=== PATIENT | female | born 1945 | race African-American/Black ===

== ENCOUNTER 2024-06-24 16:46 | Inpatient (IN) | payer MEDICARE, OTHER ==
[~2024-06-24] VITALS: Ht 152.4 cm; Wt 58.8 kg
[~2024-06-24 16:46] MED LIST: AMLO1TAB22; ATEN100T; CELE200C; LISI-285; PREG50CA80 PO; SIMV-270; TRAM-411; TRAM50TA2 PO
--- NOTE | 2024-06-24 17:03 | ED.PDOC ---
SOB-HPI HPI Comments This patient is a very pleasant 79 year old female presents to the ED with chief complaint of SOB and HTN. Patient reports that she has been experiencing some intermittent SOB for the past month, but has chosen to ignore it the whole time. Patient relays that she has also had some minor abdominal pain for a few days, unrelated. Patient states when visiting her PCP today, her BP had read 185/110, being advised to come to the ED due to her high BP. Patient denies any cough, fever, chest pain, headache, N/V/D, or dizziness. Time Seen by MD: 16:57 Primary Care Provider: Bello GIL Reviewed notes: Nurses Notes, Medications, Allergies Information Source: Patient Mode of Arrival: Ambulatory Severity: Moderate Timing: Months Duration: Since onset Context: At Rest PE Risk Factors: None History of: None Prehospital treatment: None Modifying Factors: Nothing Associated Signs and Symptoms: None Past Medical History PAST MEDICAL HISTORY: High Lipids, HTN Surgical History: Denies all surgeries EVENTS AND PROMOTIONS ASSISTANT History: Denies all EVENTS AND PROMOTIONS ASSISTANT Hx Family History Family History: No family hx of Heart netta Social History Smoker: Non-Smoker Alcohol: Denies ETOH Use Drugs: Denies Drug Use Lives In: Home Constitutional: denies: chills, diaphoresis, fatigue, fever, malaise, sweats, weakness, others EENTM: denies: blurred vision, double vision, ear bleeding, ear discharge, ear drainage, ear pain, ear ringing, eye pain, eye redness, hearing loss, mouth pain, mouth swelling, nasal discharge, nose bleeding, nose congestion, nose pain, photophobia, tearing, throat pain, throat swelling, voice changes, others Respiratory: reports: shortness of breath; denies: cough, hemoptysis, orth opnea, SOB at rest, SOB with excertion, stridor, wheezing, others Cardiovascular: denies: chest pain, dizzy spells, diaphoresis, Dyspnea on exertion, edema, irregular heart beat, left arm pain, lightheadedness, palpitations, PND, syncope, others Gastrointestinal: reports: abdominal pain; denies: abdomen distended, blood streaked bowels, constipated, diarrhea, dysphagia, difficulty swallowing, hematemesis, melena, nausea, poor appetite, poor fluid intake, rectal bleeding, rectal pain, vomiting, others Genitourinary: denies: abnormal vagina bleeding, burning, dyspareunia, dysuria, flank pain, frequency, hematuria, incontinence, pain, , vagina discharge, urgency, others Neurological: denies: dizziness, fainting, headache, left sided numbness, left sided weakness, numbness, paresthesia, pre-existing deficit, right sided numbness, right sided weakness, seizure, speech problems, tingling, tremors, we akness, others Musculoskeletal: denies: back pain, gout, joint pain, joint swelling, muscle pain, muscle stiffness, neck pain, others Integumetry: denies: bruises, change in color, change in hair/nails, dryness, laceration, lesions, lumps, rash, wounds, others Allergic/Immunocompromised: denies: Difficulty Healing, Frequent Infections, Hives, Itching, others Hematologic/Lymphatic: denies: anemia, blood clots, easy bleeding, easy bruising, swollen glands, others Endocrine: denies: excessive hunger, excessive sweating, excessive thirst, excessive urination, flushing, intolerance to cold, intolerance to heat, unexplained weight gain, unexplained weight loss, others Psychiatric: denies: anxiety, bipolar disorder, depression, hopeless, panic disorder, schizophrenia, sleepless, suicidal, others All Other Systems: Reviewed and Negative Physical Exam General Appearance: Mild Distress (Patient was in moderate distress at time of evaluation.), Normal HEENT: Normal ENT Inspection, Pharynx Normal, TMs Normal Neck: Full Range of Motion, Non-Tender, Normal, Normal Inspection Respiratory: Other (Mild rhonchi appreciated right middle lobe. No accessory muscle use. 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 Was a procedure done?: No Differential Dx Differential Diagnosis: Anxiety, Bronchitis, CHF, Hypertension, Pneumonia, Pulmonary Embolism, URI X-Ray, Labs, Meds, VS Vital Signs Date Time Temp Pulse Resp B/P (MAP) Pulse Ox O2 Delivery O2 Flow Rate FiO2 06/24/24 22:00 74 15 149/84 (105) 95 06/24/24 19:55 148/85 06/24/24 19:18 98.7 80 17 173/106 (128) 93 98.7 06/24/24 19:18 80 17 93 Room Air* 0 21 06/24/24 18:58 189/103 (131) 06/24/24 18:55 189/103 06/24/24 18:29 98.9 76 18 202/97 (132) 96 98.9 06/24/24 18:27 71 22 96 Room Air* 0 21 06/24/24 17:07 78 06/24/24 16:58 20 95 Room Air 06/24/24 16:58 97.6 87 20 185/135 (152) 95 97.6 Lab Test 06/24/24 19:41 06/24/24 19:31 06/24/24 18:07 06/24/24 17:17 Range/Units Troponin I High Sensitivity 24 24 22 </=34 ng/L Urine Color Light-yellow Yellow Urine Clarity Clear Clear Urine pH 6.0 5.0-9.0 Urine Specific [place] 1.016 1.001-1.035 Urine Protein Negative Negative Urine Ketones Negative Negative Urine Blood Negative Negative /uL Urine Nitrite Negative Negative Urine Bilirubin Negative Negative Urine Urobilinogen Normal Negative mg/dL Urine Leukocyte Esterase Negative Negative /uL Urine RBC <1 0 - 4 /hpf Urine Microscopic WBC 1 0-5 /HPF Urine Squamous Epithelial Cells Few <5 /hpf Urine Bacteria None seen None Seen /hpf Urine Glucose Normal Normal mg/dL White Blood Count 3.2 L 4.4-10.8 10^3/uL Red Blood Count 3.85 L 4.0-5.20 10^6/uL Hemoglobin 12.3 12.2-16.2 g/dL Hematocrit 37.4 36.0-46.0 % Mean Corpuscular Volume 97.1 80.0-100.0 fL Mean Corpuscular Hemoglobin 31.9 28.0-32.0 pg Mean Corpuscular Hemoglobin Concent 32.8 32.0-36.0 g/dL Red Cell Distribution Width 14.1 11.8-14.3 % Platelet Count 142 140-450 10^3/uL Mean Platelet Volume 10.2 6.9-10.8 fL Neutrophils (%) (Auto) 38.5 37.0-80.0 % Lymphocytes (%) (Auto) 42.4 10.0-50.0 % Monocytes (%) (Auto) 15.8 H 0.0-12.0 % Eosinophils (%) (Auto) 2.1 0.0-7.0 % Basophils (%) (Auto) 1.2 0.0-2.0 % Neutrophils # (Auto) 1.2 L 1.6-8.6 10 ^3/uL Lymphocytes # (Auto) 1.4 0.4-5.4 10 ^3/uL Monocytes # (Auto) 0.5 0-1.3 10 ^3/uL Eosinophils # (Auto) 0.1 0-0.8 10 ^3/uL Basophils # (Auto) 0 0-0.2 10 ^3/uL Nucleated Red Blood Cells 0.0 % D-Dimer, Quantitative 0.91 H 0.0-0.49 mg/L FEU Sodium Level 145 136-145 mmol/L Potassium Level 3.6 3.5-5.1 mmol/L Chloride Level 108 H 98-107 mmol/L Carbon Dioxide Level 28 20-31 mmol/L Anion Gap 9 5-15 Blood Urea Nitrogen 16 9-23 mg/dL Creatinine 1.20 H 0.550-1.02 mg/dL Glomerular Filtration Rate Calc 46 >90 mL/min BUN/Creatinine Ratio 13.3 10.0-20.0 Serum Glucose 115 H 74-106 mg/dL Calcium Level 10.3 8.7-10.4 mg/dL Total Bilirubin 0.5 0.2-1.0 mg/dL Aspartate Amino Transferase (AST) 23 13-40 U/L Alanine Aminotransferase (ALT) 12 7-40 U/L Alkaline Phosphatase 62 46-116 U/L B-Type Natriuretic Peptide 218.34 0-100 pg/mL Total Protein 7.3 5.7-8.2 g/dL Albumin 4.6 3.2-4.8 g/dL Current Medications Medications (Trade) Dose Ordered Sig/Jesus Route Start Time Stop Time Status Last Admin Dexamethasone Sodium Phosphate (Decadron Injection) 10 mg ONCE ONCE IM 06/24/24 17:00 06/24/24 17:01 DC 06/24/24 18:25 Clonidine HCl (Catapres Tablet) 0.2 mg ONCE ONCE PO 06/24/24 18:30 06/24/24 18:31 DC 06/24/24 18:55 Tramadol HCl (Ultram) 50 mg ONCE ONCE PO 06/24/24 20:15 06/24/24 20:16 DC 06/24/24 20:14 X-Ray, Labs, Meds, VS Comment All studies performed the ED were evaluated by me personally. Serum laboratories came back with a elevated D-dimer. CT angio was performed that was unremarkable for any pulmonary emboli. Dilated main pulmonary artery was noted which is consistent with pulmonary hypertension. Cardiomegaly noted as well. Chest x-ray showed a elevation of the right diaphragm with atelectasis in the right base. EKG revealed a sinus rhythm with a rate of 79. Abnormal R-wave progression with a LVH and secondary repolarization concerns as well as baseline wander in leads two three and AVF. [place] interval of 202 and QT interval 410. Patient displays some inverted T-waves on one and V2. I contacted our almond huller provider Savannah Cardoso and send her a copy of the EKG. She felt the patient should be admitted for cardiac evaluation for new ischemic changes. Time of 1ST Reevaluation: 23:59 Reevaluation 1ST: Improved Consultation: PCP, Cardiology Patient Education/Counseling: Diagnosis, Treatment Family Education/Counseling: Diagnosis, Treatment, No Family Present Departure 1 Departure Time of Disposition: 00:00 Impression: Primary Impression: Acute coronary syndrome Additional Impressions: Hypertensive urgency Pulmonary hypertension Disposition: 09 ADMITTED INPATIENT Condition: Stable Discharged With: Self Critical Care Note Critical Care Time?: No Stability Stability form required: No Heart Score Heart Score: Heart Score Response (Comments) Value History Slightly Suspicious 0 EKG Repolarization Disturb 1 Age >65 2 Risk Factors 1 or 2 risk factors 1 Troponin Normal limit 0 Total 4 I personally scribed for JJ SCHULTE PAC ([email or web address]) on 06/24/24 at 17:03. Electronically submitted by Kb Pa ([email or web address]). JJ SCHULTE PAC June 24, 2024 17:03
[2024-06-24 17:28] LABS: Basophils # (auto) 0 10 ^3/uL (0-0.2); Basophils % (auto) 1.2 % (0.0-2.0); Eosinophils # (auto) 0.1 10 ^3/uL (0-0.8); Eosinophils % (auto) 2.1 % (0.0-7.0); Hematocrit 37.4 % (36.0-46.0); Hemoglobin 12.3 g/dL (12.2-16.2); Lymphocytes # (auto) 1.4 10 ^3/uL (0.4-5.4); Lymphocytes % (auto) 42.4 % (10.0-50.0); Mean Corpuscular Hemoglobin 31.9 pg (28.0-32.0); Mean Corpuscular Hgb Conc. 32.8 g/dL (32.0-36.0); Mean Corpuscular Volume 97.1 fL (80.0-100.0); Monocytes # (auto) 0.5 10 ^3/uL (0-1.3); Monocytes % (auto) 15.8 % (0.0-12.0); Neutrophils # (auto) 1.2 10 ^3/uL (1.6-8.6); Neutrophils % (auto) 38.5 % (37.0-80.0); Platelet Count (auto) 142 10^3/uL (140-450); Red Blood Cells 3.85 10^6/uL (4.0-5.20); Red Cell Distribution Width 14.1 % (11.8-14.3); White Blood Cell 3.2 10^3/uL (4.4-10.8)
--- NOTE | 2024-06-24 17:32 | ECG ---
[facility] Test Date: 2024-06-24 Test Time: 17:07:40 Pat Name: PATTI LANE Department: ER Room: 0293T Gender: F Labor Relations Manager: KAPIL : 1945 Requested By: JJ SCHULTE Order Number: [id number] Reading MD: Santino Tavarez Measurements Intervals [place] Rate: 78 P: 40 OR: 202 QRS: 2 QRSD: 90 T: 135 QT: 410 QTc: 468 Interpretive Statements Sinus rhythm Abnormal R-wave progression, early transition LVH with secondary repolarization abnormality Baseline wander in lead(s) II,III,aVF Electronically Signed On 06-29-2024 20:30:55 PDT by Santino Tavarez Please click the below link to view image of tracing.
[2024-06-24 17:44] LABS: Alanine Aminotransferase 12 U/L (7-40); Albumin 4.6 g/dL (3.2-4.8); Alkaline Phosphatase 62 U/L (46-116); Anion Gap 9 (5-15); Aspartate Aminotransferase 23 U/L (13-40); BUN/Creatinine Ratio 13.3 (10.0-20.0); Bilirubin, Total 0.5 mg/dL (0.2-1.0); Blood Urea Nitrogen 16 mg/dL (9-23); Calcium 10.3 mg/dL (8.7-10.4); Carbon Dioxide 28 mmol/L (20-31); Potassium 3.6 mmol/L (3.5-5.1); Sodium 145 mmol/L (136-145); Total Protein 7.3 g/dL (5.7-8.2)
[2024-06-24 17:45] LABS: Chloride 108 mmol/L (98-107); Glucose 115 mg/dL (74-106)
--- NOTE | 2024-06-24 18:12 | DVH ---
CHEST RADIOGRAPH Indication: Shortness of breath Technique: Single frontal view of the chest was obtained Comparison: None FINDINGS: Lines and Tubes: None Lungs: No focal consolidation. Elevation right diaphragm with atelectasis right base Pleura: No effusion. No pneumothorax. Cardiomediastinal contours: Unremarkable Bones: No acute osseous abnormality. IMPRESSION: 1. Elevation right diaphragm with atelectasis right base.
[2024-06-24] MEDS: DexAMETHasone SOD PHOS 10MG/1ML VIAL INJ IM ONE (18:25)
[2024-06-24 18:27] VITALS: PULSE 71; RESP 22; O2SAT 96
[2024-06-24] MEDS: cloNIDine HCL 0.1 MG TAB PO ONE (18:55)
[2024-06-24 19:18] VITALS: PULSE 80; RESP 17; O2SAT 93
[2024-06-24 19:37] LABS: Urine Bacteria None Seen /hpf (None Seen)
[2024-06-24 20:03] LABS: Urine Blood Negative /uL (Negative); Urine Clarity Clear (Clear); Urine Color Light-Yellow (Yellow); Urine Protein, UAD Negative (Negative); Urine Specific Gravity 1.016 (1.001-1.035); Urine Squamous Epithelial Cell FEW /hpf (<5); Urine Urobilinogen Normal (Negative); Urine WBC 1 /HPF (0-5)
[2024-06-24] MEDS: traMADol HCL 50 MG TAB PO ONE (20:14)
[2024-06-24] MEDS: IOHEXOL 350 MG/ML 100ML IJ ONE (21:16)
--- NOTE | 2024-06-24 23:08 | DVH ---
CTA Chest with intravenous contrast INDICATION: Elevated D-dimer COMPARISON: None TECHNIQUE: Multidetector spiral CTA of the chest was performed of the chest with intravenous contrast . PULMONARY ANGIOGRAPHY PROTOCOL was utilized using a bolus-tracking technique centered on the main p ulmonary artery. Axial, coronal and sagittal multiplanar and MIP reformats were performed. Radiation Dose : 1. Chest: CTDI volume is 30.83 mGy. Dose-length product is 497.18 mGy*cm The dose indicators for CT are the volume Computed Tomography (CT) Dose Index (CTDIvol) and the Dose Length Product (DLP), and are measured in units of mGy and mGy-cm, respectively. These indicators are not patient dose, but values generated from the CT scanner acquisition factors. The report includes radiation exposure data for exposures received during this examination. Findings: Pulmonary artery: No pulmonary embolism The main pulmonary artery is dilated, measuring 4.8 cm in the ascending aorta measures 3.5 cm. Athero sclerotic vascular calcifications are present within the thoracic aorta and coronary arterial vascula ture. Lower neck: Normal thyroid. Lungs: No focal consolidation, pleural effusion or pneumothorax. Moderate right basilar atelectasis a nd hemidiaphragmatic elevation. Heart/Vascular Structures: Cardiomegaly. No pericardial effusion. Lymph Nodes: No adenopathy Pleura: No pleural effusion or significant pneumothorax. Musculoskeletal: No acute osseous abnormality. Soft tissues: Normal. Upper abdomen: Limited portions of the upper abdomen are unremarkable. Benign-appearing hepatic cysts measure up to 2.4 cm. IMPRESSION: 1. No pulmonary embolism. 2. Dilated main pulmonary artery. This finding may be consistent with pulmonary hypertension. 3. Cardiomegaly.
[2024-06-25] MEDS ORDERED: HYDROcodone-ACET 5/325MG TAB PO PRN (01:45)
[2024-06-25] MEDS ORDERED: DOCUSATE SOD 100 MG CAP PO PRN (01:45)
[2024-06-25] MEDS: HYDROcodone-ACET 10/325MG TAB PO ONE (02:01)
--- NOTE | 2024-06-25 03:11 | DVHHP2 ---
History of Present Illness Reason for Visit: Acute coronary syndrome History of Present Illness The patient is a 79-year-old female with past medical history of hyperlipidemia and hypertension who presented to [facility] ED with complaint of shortness of breaths. Patient reports that she has been experiencing some intermittent SOB for the past month, but has chosen to ignore it the whole time. Patient relays that she has also had some minor abdominal pain for a few days, unrelated. Patient states when visiting her PCP today, her BP had read 185/110 and was advised to come to the ED. patient was seen and evaluated in the ED, laboratory data shows WBC 3.2, platelets 142, sodium 145, potassium 3.6, BUN 16, creatinine 1.20, glucose 115, troponin 24, BNP 218.34, D-dimer 0.91, blood pressure 202/97 trending down to 148/85, pulse 76, temperature 98.7 F, O2 saturation 95% on oxygen. CT angiography showed no pulmonary embolism. Please see medication orders section in the computer. On my assessment, patient denied chest pain at this moment, no headache, no dizziness, no palpitation, no shortness of breaths, no nausea, no vomiting, no fever, no chills. Patient was admitted for further evaluation and medical management. Past Medical History High Lipids, HTN Past Surgical History Denies all surgeries Family History Reviewed, noncontributory to the management of this case. Past Social History The patient lives at home, denies smoking, alcohol or illicit drugs abuse. Review of Systems Constitutional: Yes: Weakness; No: Fever, Chills, Sweats, Malaise, Other Eyes: No: Pain, Vision change, Conjunctivae inflammation, Eyelid inflammation, Other, Redness ENT: No: Ear pain, Ear discharge, Nose pain, Nose discharge, Nose congestion, Mouth pain, Mouth swelling, Throat pain, Throat swelling, Other Respiratory: Shortness of breath; No: Cough, Dry, SOB with excertion, Wheezing, Hemoptysis, Pleuritic Pain, Sputum, Wheezing, Other Cardiovascular: No: Chest Pain, Palpitations, Orthopnea, Paroxysmal Noc. Dyspnea, Edema, Lt Headedness, Other Gastrointestinal: Abdominal Pain; No: Nausea, Vomiting, Diarrhea, Constipation, Melena, Hematochezia, Other Genitourinary: No Dysuria, No Frequency, No Incontinence, No Hematuria, No Retention, No Other Musculoskeletal: No: other, neck pain, shoulder pain, arm pain, back pain, hand pain, leg pain, foot pain Skin: No: Rash, Lesions, Jaundice, Bruising, Other Neurological: No: Weakness, Numbness, Incoordination, Change in speech, Confusion, Seizures, Other Allergies: Coded Allergies: NO KNOWN ALLERGIES (Unverified , 03/09/10) Medications Current Medications Medications Dose Ordered Sig/Jesus Route Start Time Stop Time Status Last Admin Dose Admin Hydralazine HCl 10 mg Q6HP PRN IV 06/25/24 01:45 Aspirin 81 mg DAILY PO 06/25/24 10:00 Atorvastatin Calcium 20 mg HS PO 06/25/24 22:00 Amlodipine Besylate 5 mg DAILY PO 06/25/24 10:00 Metoprolol Tartrate 25 mg BID PO 06/25/24 10:00 Sodium Chloride 10 ml Q8HR IV 06/25/24 06:00 Ondansetron HCl 4 mg Q4HP PRN IV 06/25/24 01:45 Docusate Sodium 100 mg BIDPRN PRN PO 06/25/24 01:45 Acetaminophen 650 mg Q6HP PRN PO 06/25/24 01:45 Acetaminophen/ Hydrocodone Bitart 1 tab Q6HPRN PRN PO 06/25/24 02:45 Exam Vital Signs Vital Signs Date Time Temp Pulse Resp B/P (MAP) Pulse Ox O2 Delivery O2 Flow Rate FiO2 06/25/24 00:00 76 15 148/85 (106) 95 06/24/24 19:18 98.7 98.7 06/24/24 19:18 Room Air* 0 21 General Appearance: Alert, Oriented X3, Cooperative, No acute distress HEENT: Atraumatic, PERRLA, EOMI, Mucous membr. moist/pink Respiratory: Clear to auscultation, Normal air movement Cardiovascular: Regular rate, Normal S1, Normal S2, No murmurs Abdominal: Normal bowel sounds, Soft, No tenderness, No hepatospenomegaly, No masses Extremities: No clubbing, No cyanosis, No edema, Normal pulses, No tenderness/swelling Skin: No rashes, No breakdown, No significant lesion Neuro: Normal speech, Normal tone, Sensation intact, Cranial nerves 3-12 NL, Reflexes 2+, Other (Weakness) Psych/Mental Status: Mental status NL, Mood NL Labs/Xrays Labs Test 06/24/24 19:41 06/24/24 19:31 06/24/24 17:17 Range/Units Troponin I High Sensitivity 24 </=34 ng/L Urine Color Light-yellow Yellow Urine Clarity Clear Clear Urine pH 6.0 5.0-9.0 Urine Specific [place] 1.016 1.001-1.035 Urine Protein Negative Negative Urine Ketones Negative Negative Urine Blood Negative Negative /uL Urine Nitrite Negative Negative Urine Bilirubin Negative Negative Urine Urobilinogen Normal Negative mg/dL Urine Leukocyte Esterase Negative Negative /uL Urine RBC <1 0 - 4 /hpf Urine Microscopic WBC 1 0-5 /HPF Urine Squamous Epithelial Cells Few <5 /hpf Urine Bacteria None seen None Seen /hpf Urine Glucose Normal Normal mg/dL White Blood Count 3.2 L 4.4-10.8 10^3/uL Red Blood Count 3.85 L 4.0-5.20 10^6/uL Hemoglobin 12.3 12.2-16.2 g/dL Hematocrit 37.4 36.0-46.0 % Mean Corpuscular Volume 97.1 80.0-100.0 fL Mean Corpuscular Hemoglobin 31.9 28.0-32.0 pg Mean Corpuscular Hemoglobin Concent 32.8 32.0-36.0 g/dL Red Cell Distribution Width 14.1 11.8-14.3 % Platelet Count 142 140-450 10^3/uL Mean Platelet Volume 10.2 6.9-10.8 fL Neutrophils (%) (Auto) 38.5 37.0-80.0 % Lymphocytes (%) (Auto) 42.4 10.0-50.0 % Monocytes (%) (Auto) 15.8 H 0.0-12.0 % Eosinophils (%) (Auto) 2.1 0.0-7.0 % Basophils (%) (Auto) 1.2 0.0-2.0 % Neutrophils # (Auto) 1.2 L 1.6-8.6 10 ^3/uL Lymphocytes # (Auto) 1.4 0.4-5.4 10 ^3/uL Monocytes # (Auto) 0.5 0-1.3 10 ^3/uL Eosinophils # (Auto) 0.1 0-0.8 10 ^3/uL Basophils # (Auto) 0 0-0.2 10 ^3/uL Nucleated Red Blood Cells 0.0 % D-Dimer, Quantitative 0.91 H 0.0-0.49 mg/L FEU Sodium Level 145 136-145 mmol/L Potassium Level 3.6 3.5-5.1 mmol/L Chloride Level 108 H 98-107 mmol/L Carbon Dioxide Level 28 20-31 mmol/L Anion Gap 9 5-15 Blood Urea Nitrogen 16 9-23 mg/dL Creatinine 1.20 H 0.550-1.02 mg/dL Glomerular Filtration Rate Calc 46 >90 mL/min BUN/Creatinine Ratio 13.3 10.0-20.0 Serum Glucose 115 H 74-106 mg/dL Calcium Level 10.3 8.7-10.4 mg/dL Total Bilirubin 0.5 0.2-1.0 mg/dL Aspartate Amino Transferase (AST) 23 13-40 U/L Alanine Aminotransferase (ALT) 12 7-40 U/L Alkaline Phosphatase 62 46-116 U/L B-Type Natriuretic Peptide 218.34 0-100 pg/mL Total Protein 7.3 5.7-8.2 g/dL Albumin 4.6 3.2-4.8 g/dL PATIENT: PATTI LANE ACCT: [id number] UNIT: [id number] : 1945 LOC: ER ROOM / BED: / AGE / SEX: 79 / F ADM STATUS: REG ER SERVICE 01 ORDERING PHYSICIAN: JJ SCHULTE PAC PROCEDURE(s): CTACH - CT ANGIO CHEST CONTRAST REASON: Elevated D-dimer ORDER NUMBER(s): [id number], ACCESSION NUMBER(s): [id number] ADDENDUM ADDENDUM # 1 Incompletely visualized predominantly soft tissue attenuation mildly heterogeneous left thyroid lobe mass / enlargement measures 4.8 x 4.4 cm. Lamont conglomerate and/or lamont component of the soft tissue mass can not be completely excluded. Dedicated thyroid ultrasound with or without fine-needle aspiration is recommended for further evaluation if not already completed. ORIGINAL REPORT CTA Chest with intravenous contrast INDICATION: Elevated D-dimer COMPARISON: None TECHNIQUE: Multidetector spiral CTA of the chest was performed of the chest with intravenous contrast. PULMONARY ANGIOGRAPHY PROTOCOL was utilized using a bolus-tracking technique centered on the main pulmonary artery. Axial, coronal and sagittal multiplanar and MIP reformats were performed. Radiation Dose: 1. Chest: CTDI volume is 30.83 mGy. Dose-length product is 497.18 mGy*cm The dose indicators for CT are the volume Computed Tomography (CT) Dose Index (CTDIvol) and the Dose Length Product (DLP), and are measured in units of mGy and mGy-cm, respectively. These indicators are not patient dose, but values generated from the CT scanner acquisition factors. The report includes radiation exposure data for exposures received during this examination. Findings: Pulmonary artery: No pulmonary embolism The main pulmonary artery is dilated, measuring 4.8 cm in the ascending aorta measures 3.5 cm. Atherosclerotic vascular calcifications are present within the thoracic aorta and coronary arterial vasculature. Lower neck: Normal thyroid. Lungs: No focal consolidation, pleural effusion or pneumothorax. Moderate right basilar atelectasis and hemidiaphragmatic elevation. Heart/Vascular Structures: Cardiomegaly. No pericardial effusion. Lymph Nodes: No adenopathy Pleura: No pleural effusion or significant pneumothorax. Musculoskeletal: No acute osseous abnormality. Soft tissues: Normal. Upper abdomen: Limited portions of the upper abdomen are unremarkable. Benign- appearing hepatic cysts measure up to 2.4 cm. IMPRESSION: 1. No pulmonary embolism. 2. Dilated main pulmonary artery. This finding may be consistent with pulmonary hypertension. 3. Cardiomegaly. DICTATED BY: LEVY LORENZO MD DICTATED DATE/TIME: 06/24/24 1541 SIGNED BY: LEVY LORENZO MD SIGNED DATE/TIME: 06/24/24 397 CC: CTA Chest with intravenous contrast INDICATION: Elevated D-dimer COMPARISON: None TECHNIQUE: Multidetector spiral CTA of the chest was performed of the chest with intravenous contrast. PULMONARY ANGIOGRAPHY PROTOCOL was utilized using a bolus-tracking technique centered on the main pulmonary artery. Axial, coronal and sagittal multiplanar and MIP reformats were performed. Radiation Dose: 1. Chest: CTDI volume is 30.83 mGy. Dose-length product is 497.18 mGy*cm The dose indicators for CT are the volume Computed Tomography (CT) Dose Index (CTDIvol) and the Dose Length Product (DLP), and are measured in units of mGy and mGy-cm, respectively. These indicators are not patient dose, but values generated from the CT scanner acquisition factors. The report includes radiation exposure data for exposures received during this examination. Findings: Pulmonary artery: No pulmonary embolism The main pulmonary artery is dilated, measuring 4.8 cm in the ascending aorta measures 3.5 cm. Atherosclerotic vascular calcifications are present within the thoracic aorta and coronary arterial vasculature. Lower neck: Normal thyroid. Lungs: No focal consolidation, pleural effusion or pneumothorax. Moderate right basilar atelectasis and hemidiaphragmatic elevation. Heart/Vascular Structures: Cardiomegaly. No pericardial effusion. Lymph Nodes: No adenopathy Pleura: No pleural effusion or significant pneumothorax. Musculoskeletal: No acute osseous abnormality. Soft tissues: Normal. Upper abdomen: Limited portions of the upper abdomen are unremarkable. Benign- appearing hepatic cysts measure up to 2.4 cm. IMPRESSION: 1. No pulmonary embolism. 2. Dilated main pulmonary artery. This finding may be consistent with pulmonary hypertension. 3. Cardiomegaly. ORDERING PHYSICIAN: JJ SCHULTE PAC PROCEDURE(s): CXRP - CHEST PORTABLE REASON: Shortness of breath ORDER NUMBER(s): [id number], ACCESSION NUMBER(s): [id number] CHEST RADIOGRAPH Indication: Shortness of breath Technique: Single frontal view of the chest was obtained Comparison: None FINDINGS: Lines and Tubes: None Lungs: No focal consolidation. Elevation right diaphragm with atelectasis right base Pleura: No effusion. No pneumothorax. Cardiomediastinal contours: Unremarkable Bones: No acute osseous abnormality. IMPRESSION: 1. Elevation right diaphragm with atelectasis right base. Assessment/Plan Assessment/Plan Acute coronary syndrome Hypertensive urgency Elevated D-dimer Pulmonary hypertension Generalized weakness Plan 1. Admit to telemetry unit 2. Breathing treatment 3. Pain control management 4. Management of fluids and electrolytes 5. Consultation for hospitalist 6. Diagnostic tests-CT Angiography 7. DVT prophylaxis on aspirin 8. Repeat labs CBC, CMP in a.m. 9. Continue with current medical management 10. Treatment plan discussed with patient and RN. Patient verbalized understanding. Plan discussed with: Patient, Other (RN) My Orders Orders - MAHAD GRACE DNP Procedure Category Date Status Time Complete Blood Count LAB 06/25/24 Logged 04:00 Basic Metabolic Panel LAB 06/25/24 Logged 04:00 Hydralazine Injection PHA 06/25/24 In Process (Apresoline Inject 01:45 Aspirin Tablet PHA 06/25/24 In Process 10:00 Atorvastatin (Lipitor) PHA 06/25/24 In Process 22:00 Amlodipine Tablet PHA 06/25/24 In Process (Norvasc Tablet) 10:00 Metoprolol Tartrate PHA 06/25/24 In Process Tablet (Lopressor Ta 10:00 Allergies COLTON 06/25/24 In Process 01:37 Code Status CODE 06/25/24 Transmitted 01:37 Sodium Chloride Lock PHA 06/25/24 In Process (Saline Lock Ns) 06:00 Oxygen Per Hour RT 06/25/24 Transmitted 01:37 Ondansetron Hcl PHA 06/25/24 In Process (Zofran) 01:45 Docusate Sodium PHA 06/25/24 In Process Capsule (Colace 01:45 Complete Blood Count LAB 06/26/24 Verified 04:00 Comprehensive LAB 06/26/24 Verified Metabolic Panel 04:00 Condition: Serious COLTON 06/25/24 In Process 01:37 Acetaminophen Tablet PHA 06/25/24 In Process (Tylenol Tablet) 01:45 Bedrest With Bathroom COLTON 06/25/24 In Process Privileg 01:37 Sequential COLTON 06/25/24 In Process Compression Device Hydrocodone-Acet PHA 06/25/24 In Process 10/325mg Tab (Mathews 02:45 Admit ADMIT 06/25/24 Verified 03:09 Nitroglycerin PHA 06/25/24 Verified Sublingual (Ntrostat 03:15 Morphine Sulfate PHA 06/25/24 Verified Injection 03:15 Notify Of Changes COLTON 06/25/24 Verified From Base 03:09 Offc Spec For COLTON 06/25/24 Verified 24 Hours 03:09 Emergency Dysrhythmia COLTON 06/25/24 Verified Protocol 03:09 Rhythm Strips Once COLTON 06/25/24 Verified Every Shift 03:09 Oxygen By Nasal RT 06/25/24 Verified Cannula 03:09 Problem List: (1) Acute coronary syndrome (2) Generalized weakness (3) Hypertensive urgency (4) Elevated d-dimer (5) Pulmonary hypertension Date of Service: June 25, 2024 Billing Provider: MAHAD GRACE DNP Common Visit Codes: [id number] INP/OBS CARE (HIGH) MAHAD GRACE DNP June 25, 2024 03:11
[2024-06-25] MEDS ORDERED: NITROGLYCERIN 0.4 MG SL TAB SL PRN (03:15)
[2024-06-25] MEDS: SODIUM CHLOR 0.9% PF (SALINE LOCK) 10ML VIAL/SYR IV SCH (05:39)
[2024-06-25] MEDS ORDERED: PREG25CA28 PO (05:46)
[2024-06-25] MEDS ORDERED: FOLITAB22 PO (05:47)
[2024-06-25] MEDS ORDERED: METO25TA93 PO (05:47)
[2024-06-25] MEDS ORDERED: METO25TA5 PO (06:03)
[2024-06-25 06:39] LABS: Chloride 106 mmol/L (98-107); Potassium 3.8 mmol/L (3.5-5.1); Sodium 142 mmol/L (136-145)
[2024-06-25 06:40] LABS: Anion Gap 9 (5-15); Carbon Dioxide 27 mmol/L (20-31)
[2024-06-25 06:41] LABS: Basophils # (auto) 0 10 ^3/uL (0-0.2); Basophils % (auto) 0.3 % (0.0-2.0); Eosinophils # (auto) 0 10 ^3/uL (0-0.8); Hematocrit 34.5 % (36.0-46.0); Hemoglobin 11.5 g/dL (12.2-16.2); Lymphocytes # (auto) 0.6 10 ^3/uL (0.4-5.4); Mean Corpuscular Hemoglobin 32.3 pg (28.0-32.0); Mean Corpuscular Hgb Conc. 33.4 g/dL (32.0-36.0); Mean Corpuscular Volume 96.8 fL (80.0-100.0); Monocytes # (auto) 0.1 10 ^3/uL (0-1.3); Neutrophils # (auto) 3.2 10 ^3/uL (1.6-8.6); Neutrophils % (auto) 82.7 % (37.0-80.0); Platelet Count (auto) 134 10^3/uL (140-450); Red Blood Cells 3.56 10^6/uL (4.0-5.20); Red Cell Distribution Width 13.8 % (11.8-14.3); White Blood Cell 3.9 10^3/uL (4.4-10.8)
[2024-06-25 06:45] LABS: BUN/Creatinine Ratio 13.8 (10.0-20.0); Blood Urea Nitrogen 15 mg/dL (9-23)
[2024-06-25 06:46] LABS: Glucose 141 mg/dL (74-106)
[2024-06-25] MEDS: hydrALAZINE HCL 20 MG/ML VL IV PRN (07:56)
[2024-06-25] MEDS: HYDROcodone-ACET 10/325MG TAB PO PRN (07:56)
[2024-06-25] MEDS: METOPROLOL TARTRATE 25 MG TAB PO SCH (10:18)
[2024-06-25] MEDS: amLODIPine BESYLATE 5 MG TAB PO SCH (10:19)
[2024-06-25] MEDS: ASPirin 81 mg TAB PO SCH (10:19)
[2024-06-25] MEDS: ONDANSETRON HCL 4 MG/2 ML VIAL IV PRN (17:45)
[2024-06-25 18:40] VITALS: BP 142/83; PULSE 76; RESP 17; TEMP 98.3; O2SAT 93
[2024-06-25 20:00] VITALS: PULSE 70; PULSE 71; RESP 17
[2024-06-25 21:00] VITALS: BP 135/77; PULSE 72; RESP 17; TEMP 98.3; O2SAT 96
[2024-06-25] MEDS: ATORVASTATIN 20 MG TAB PO SCH (21:06)
[2024-06-26] VITALS (8 sets, daily range): BP systolic 109–158; BP diastolic 55–86; PULSE 64–92; RESP 16–18; TEMP 97.9–98.6; O2SAT 91–96
[2024-06-26 05:43] LABS: Basophils # (auto) 0 10 ^3/uL (0-0.2); Basophils % (auto) 0.5 % (0.0-2.0); Eosinophils # (auto) 0 10 ^3/uL (0-0.8); Eosinophils % (auto) 0.6 % (0.0-7.0); Hematocrit 32.4 % (36.0-46.0); Hemoglobin 10.8 g/dL (12.2-16.2); Lymphocytes # (auto) 1.4 10 ^3/uL (0.4-5.4); Lymphocytes % (auto) 35.7 % (10.0-50.0); Mean Corpuscular Hemoglobin 32.2 pg (28.0-32.0); Mean Corpuscular Hgb Conc. 33.2 g/dL (32.0-36.0); Mean Corpuscular Volume 96.8 fL (80.0-100.0); Monocytes # (auto) 0.4 10 ^3/uL (0-1.3); Monocytes % (auto) 10.6 % (0.0-12.0); Neutrophils % (auto) 52.6 % (37.0-80.0); Nucleated Red Blood Cells % 0.1 %; Platelet Count (auto) 131 10^3/uL (140-450); Red Blood Cells 3.34 10^6/uL (4.0-5.20); Red Cell Distribution Width 13.8 % (11.8-14.3); White Blood Cell 3.9 10^3/uL (4.4-10.8)
[2024-06-26 06:03] LABS: Alanine Aminotransferase 11 U/L (7-40); Alkaline Phosphatase 47 U/L (46-116); Anion Gap 8 (5-15); Blood Urea Nitrogen 21 mg/dL (9-23); Calcium 9.7 mg/dL (8.7-10.4); Carbon Dioxide 28 mmol/L (20-31); Glucose 83 mg/dL (74-106); Total Protein 6.1 g/dL (5.7-8.2)
[2024-06-26 06:04] LABS: Albumin 3.9 g/dL (3.2-4.8); Aspartate Aminotransferase 20 U/L (13-40); BUN/Creatinine Ratio 15.7 (10.0-20.0); Bilirubin, Total 0.6 mg/dL (0.2-1.0); Chloride 110 mmol/L (98-107); Potassium 3.5 mmol/L (3.5-5.1); Sodium 146 mmol/L (136-145)
--- NOTE | 2024-06-26 16:27 | DVHPN2 ---
Subjective Seen and examined at bedside, c/o chest pain. Repeat trops and will get a STAT Echo and Cardio Cx. Changes from previous H/P or p: No Changes Eyes: No Pain, No Vision change, No Conjunctivae inflammation, No Eyelid inflammation, No Other, No Redness ENT: No Ear pain, No Ear discharge, No Nose pain, No Nose discharge, No Nose congestion, No Mouth pain, No Mouth swelling, No Throat pain, No Throat swelling, No Other Cardiovascular: No Chest Pain, No Palpitations, No Orthopnea, No Paroxysmal Noc. Dyspnea, No Edema, No Lt Headedness, No Other Respiratory: No Cough, No Dry, No SOB with excertion, No Wheezing, No Hemoptysis, No Pleuritic Pain, No Sputum, No Other Gastrointestinal: No Nausea, No Vomiting, No Diarrhea, No Constipation, No Melena, No Hematochezia, No Other Genitourinary: No Dysuria, No Frequency, No Incontinence, No Hematuria, No Retention, No Other Musculoskeletal: No other, No neck pain, No shoulder pain, No arm pain, No back pain, No hand pain, No leg pain, No foot pain Skin: No Rash, No Lesions, No Jaundice, No Bruising, No Other Objective Vitals Vital Signs Date Time Temp Pulse Resp B/P (MAP) Pulse Ox O2 Delivery O2 Flow Rate FiO2 06/26/24 13:00 98.0 75 17 139/77 (97) 91 98.0 06/26/24 08:00 Room Air* 0 21 Intake/Output Intake and Output 06/26/24 07:00 Intake Total 153 ml Balance 153 ml Intake Oral 150 ml Tube Feeding 3 ml General Appearance: Alert, Oriented X3, Cooperative, No acute distress Lungs: Clear to auscultation Cardiovascular: Regular rate, Normal S1, Normal S2 Abdomen: Normal bowel sounds, Soft Psych/Mental Status: Mental status NL Medications Current Medications Medications Dose Ordered Sig/Jesus Route Start Time Stop Time Status Last Admin Dose Admin Hydralazine HCl 10 mg Q6HP PRN IV 06/25/24 01:45 06/25/24 07:56 10 MG Aspirin 81 mg DAILY PO 06/25/24 10:00 06/26/24 09:22 81 MG Atorvastatin Calcium 20 mg HS PO 06/25/24 22:00 06/25/24 21:06 20 MG Amlodipine Besylate 5 mg DAILY PO 06/25/24 10:00 06/26/24 09:22 5 MG Metoprolol Tartrate 25 mg BID PO 06/25/24 10:00 06/26/24 09:22 25 MG Sodium Chloride 10 ml Q8HR IV 06/25/24 06:00 06/26/24 14:39 10 ML Ondansetron HCl 4 mg Q4HP PRN IV 06/25/24 01:45 06/26/24 14:39 4 MG Docusate Sodium 100 mg BIDPRN PRN PO 06/25/24 01:45 Acetaminophen 650 mg Q6HP PRN PO 06/25/24 01:45 Acetaminophen/ Hydrocodone Bitart 1 tab Q6HPRN PRN PO 06/25/24 02:45 06/26/24 14:39 1 TAB Nitroglycerin 0.4 mg Q5MINP PRN SL 06/25/24 03:15 Morphine Sulfate 2 mg Q30M PRN IV 06/25/24 03:15 Laboratory Results Laboratory Tests 06/26/24 05:08 Chemistry Test 06/26/24 05:08 Albumin 3.9 g/dL (3.2-4.8) Calcium Level 9.7 mg/dL (8.7-10.4) Total Protein 6.1 g/dL (5.7-8.2) LFT Test 06/26/24 05:08 Alanine Aminotransferase (ALT) 11 U/L (7-40) Alkaline Phosphatase 47 U/L (46-116) Aspartate Amino Transferase (AST) 20 U/L (13-40) Total Bilirubin 0.6 mg/dL (0.2-1.0) Urinalysis Test 06/24/24 19:31 Urine Color Light-yellow (Yellow) Urine Clarity Clear (Clear) Urine pH 6.0 (5.0-9.0) Urine Specific [place] 1.016 (1.001-1.035) Urine Protein Negative (Negative) Urine Ketones Negative (Negative) Urine Blood Negative /uL (Negative) Urine Nitrite Negative (Negative) Urine Bilirubin Negative (Negative) Urine Urobilinogen Normal mg/dL (Negative) Urine Leukocyte Esterase Negative /uL (Negative) Urine RBC <1 /hpf (0 - 4) Urine Microscopic WBC 1 /HPF (0-5) Urine Squamous Epithelial Cells Few /hpf (<5) Urine Bacteria None seen /hpf (None Seen) Urine Glucose Normal mg/dL (Normal) Assessment/Plan Assessment/Plan NSTEMI- ECHO. Cardio Cx Chest Pain- ECHO, Cardio Cx Hypertensive urgency- Monitor and adjust meds as needed Pulmonary hypertension- Lasix Goals of care >18 mins FULL CODE Plan discussed with: Patient My Orders Orders - SHANIKA NOLASCO MD Procedure Category Date Status Time Electrocardigram EKG 06/26/24 Logged 15:44 Troponin-I Hs LAB 06/26/24 Logged 16:21 Echo 2d Mode Cardiac US 06/26/24 Logged DOP 16:21 Date of Service: June 26, 2024 Billing Provider: SHANIKA NOLASCO MD Common Visit Codes: [id number] INP/OBS CARE(HIGH) Secondary Visit Codes: [id number] CARE PLAN 30 MINUTES SHANIKA NOLASCO MD June 26, 2024 16:27
[2024-06-26] MEDS: FUROSEMIDE 20 MG/2 ML VIAL IV ONE (17:10)
[2024-06-26] MEDS: ATORVASTATIN 20 MG TAB PO SCH (21:01)
[2024-06-27] VITALS (7 sets, daily range): BP systolic 120–159; BP diastolic 71–91; PULSE 69–93; RESP 12–17; TEMP 97.9–98.9; O2SAT 94–96
[2024-06-27 07:22] LABS: Anion Gap 10 (5-15); Calcium 9.9 mg/dL (8.7-10.4); Carbon Dioxide 29 mmol/L (20-31); Chloride 106 mmol/L (98-107); Sodium 145 mmol/L (136-145)
[2024-06-27 07:23] LABS: Basophils # (auto) 0 10 ^3/uL (0-0.2); Basophils % (auto) 0.9 % (0.0-2.0); Eosinophils # (auto) 0.1 10 ^3/uL (0-0.8); Eosinophils % (auto) 1.5 % (0.0-7.0); Hematocrit 35.5 % (36.0-46.0); Lymphocytes # (auto) 1.5 10 ^3/uL (0.4-5.4); Lymphocytes % (auto) 40.9 % (10.0-50.0); Mean Corpuscular Hemoglobin 32.5 pg (28.0-32.0); Mean Corpuscular Hgb Conc. 33.7 g/dL (32.0-36.0); Mean Corpuscular Volume 96.3 fL (80.0-100.0); Monocytes # (auto) 0.6 10 ^3/uL (0-1.3); Monocytes % (auto) 15.3 % (0.0-12.0); Neutrophils # (auto) 1.5 10 ^3/uL (1.6-8.6); Neutrophils % (auto) 41.4 % (37.0-80.0); Nucleated Red Blood Cells % 0.1 %; Platelet Count (auto) 141 10^3/uL (140-450); Red Blood Cells 3.69 10^6/uL (4.0-5.20); Red Cell Distribution Width 13.7 % (11.8-14.3); White Blood Cell 3.6 10^3/uL (4.4-10.8)
[2024-06-27 07:27] LABS: Glucose 90 mg/dL (74-106)
[2024-06-27 07:28] LABS: BUN/Creatinine Ratio 14.7 (10.0-20.0); Blood Urea Nitrogen 19 mg/dL (9-23); LDL Cholesterol 35 mg/dL (< 100); Potassium 3.3 mmol/L (3.5-5.1); Triglycerides 124 mg/dL (< 150)
[2024-06-27 07:30] LABS: Cholesterol 124 mg/dL (< 200); HDL Cholesterol 51 mg/dL (40-59)
--- NOTE | 2024-06-27 07:47 | DVHSR ---
APPROVED REPORT EXAM: Two-dimensional and M-mode echocardiogram with Doppler and color Doppler. Blood Pressure: 139/77 mmHg INDICATION Chest Pain RISK FACTORS Height: 5'0, Weight: 115 DIMENSIONS LVDd4.9 (3.8-5.7cm)LA (2D)4.3 (1.9-4.0cm)Aortic Root3.4 (2.0-3.7cm) LVDs3.1 (2.5-4.0cm)LA (MM) (1.9-4.0cm)Aortic Cusp Exc1.9 (1.5-2.0cm) EF (%) 60.0 (55-70%)Rt. Atrium2.7 (1.9-4.0cm)Asc. Aorta3.4 cm IVSd0.9 (0.7-1.1cm)RV (D)3.1 (1.8-2.4cm) PWd0.8 (0.7-1.1cm) Mitral Valve MitralMitral Stenosis E wave0.66m/sMV Mean GR.mmHg A wave0.78m/sMV Peak GR.37mmHg E/A ratio0.82D MVAcm2 DECEL [id number] 1/2 Tim[place] Aortic Valve Aortic ValveAortic Stenosis V11.20m/Dc Mean GR.4mmHg V21.48m/Dc Peak GR.9mmHg LVOT Diameter2.1 (1.8-2.4cm)Doppler AVA2.81cm2 Pulmonic Valve V21.33m/s Tricuspid Valve TR Velocity3.36m/s [id number] Other Information Technically limited study due to body habitus.patient position. Conclusion lvef 60% moderate LVH normal rv function left atrium enlarged no severe valve abnormalities noted
--- NOTE | 2024-06-27 08:21 | ECG ---
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
[2024-06-27] MEDS: FUROSEMIDE 20 MG/2 ML VIAL IV SCH (08:48)
--- NOTE | 2024-06-27 10:04 | DVHINCON2 ---
CHEMA MCCULLOUGH [facility] 06/27/24 1004: Date Seen: June 27, 2024 Referring Physician MD Michelle Reason for Consultation Chest pain History of Present Illness This is a pleasant 79-year-old female who presented to emergency room with a chief complaint of SOB for one month. The patient complains of progressive shortness of breath for the past month which occurs mostly at night and recent epigastric pain for the past week which prompted to advise his to present for further medical evaluation. She also complains of right jaw pain but is not sure if this is secondary to the recent lost of a dental crown. Denies chest pain, palpitations, diaphoresis, or syncopal events. She presented with a systolic blood pressure in the 200s, states she is compliant with her antihypertensive therapy with no recent changes in therapy. 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 Troponin levels peaked at 40 ng/L. Reports significant familial history for cardiovascular disease including father with multiple myocardial infarctions and mother with CVA. Significant medical history includes hypertension, dyslipidemia, osteoarthritis, osteoporosis, and chronic pain syndrome to left l ower extremity status post knee replacement. Past Medical History Past medical history reviewed. No other significant than mentioned above. Past Surgical History Left knee Family History: Patient reports no known family medical history. Family History Family history reviewed. See HPI. Social History Denies the use of illicit drugs, alcohol, or tobacco use. Allergies: Coded Allergies: NO KNOWN ALLERGIES (Unverified , 03/09/10) Home Meds Reported Medications Metoprolol Tartrate (Metoprolol Tartrate) 25 Mg Tab, 1 TAB PO BID, #180 TAB 1 Refill 06/25/24 Folic Wlqx-Tksxzlpwyx-Paktnfmr (Folbic) Tab, 1 TAB PO DAILY, #90 TAB 1 Refill 06/25/24 Pregabalin (Pregabalin) 25 Mg Cap, 2 CAP PO 06/25/24 Tramadol Hcl (Tramadol Hcl) 50 Mg Tab, 1 TAB PO 06/25/24 Pregabalin (Pregabalin) 50 Mg Cap, 1 CAP PO 06/25/24 Simvastatin (Zocor) 20 Mg Tab, DAILY 03/09/10 Tramadol Hcl (Rybix Odt) 50 Mg Tab, DAILY 03/09/10 Celecoxib (Celebrex) 200 Mg Cap, DAILY 03/09/10 Lisinopril & Hydrochlorothiazi (Lisinopril/Hydrochlorothi) 1 Tab Tab, DAILY 03/09/10 Atenolol (Atenolol) 100 Mg Tab, DAILY 03/09/10 Amlodipine Besylate (Amlodipine Besylate) 5 Mg Tab, DAILY 03/09/10 Discontinued Reported Medications Metoprolol Succinate (Metoprolol Succinate Er) 25 Mg Tab, 1 TAB PO DAILY, #30 TAB 5 Refills 06/25/24 Home Meds Home medications reviewed. Current Medications Current Medications Medications (Trade) Dose Ordered Sig/Jesus Route PRN Reason Start Time Stop Time Status Last Admin Atorvastatin Calcium (Lipitor) 40 mg HS PO 06/26/24 22:00 06/26/24 21:01 Furosemide (Lasix Injection) 20 mg DAILY IV 06/27/24 10:00 06/27/24 08:48 Review of Systems Constitutional: Right jaw pain Ears, Nose, & Throat: No symptom reported Eyes: No symptom reported Neurological: No symptoms reported Pulmonary/Respiratory: SOB Cardiovascular: No symptom reported Gastrointestinal: Epigastric pain Genitourinary: No symptom reported Musculoskeletal: No symptom reported Skin: No symptom reported Psychiatric: No symptom reported Endocrine: No symptom reported Hemotologic/Lymphatic: No symptom reported Vital Signs Vital Signs Date Time Temp Pulse Resp B/P (MAP) Pulse Ox O2 Delivery O2 Flow Rate FiO2 06/27/24 08:48 139/91 06/27/24 08:47 89 06/27/24 08:05 Room Air* 0 21 06/27/24 05:00 98.2 16 96 98.2 Physical Exam General Appearance: Cooperative. Well developed. Well nourished. In no acute distress Head Exam: Normal inspection Neck Exam: Normal inspection. Non-tender. Normal alignment Pulmonary/Respiratory: Chest non-tender. Clear bilateral breath sounds Cardiovascular/Chest: Regular rate and rhythm. S1, S2. Sinus rhythm with anteroseptal T-wave inversion. No murmurs. No JVD. Peripheral Pulses: 2+ Radial (R). 2+ Radial (L). 2+ Pedal (R). 2+ Pedal (L) Abdominal Exam: Normal bowel sounds. Soft. Nontender. No hepatospenomegaly. No masses Ankle Exam: Negative ankle edema Lower extremities: Negative lower extremity edema Neuro/Mental Status: A&O x4. Coherent Thoughts/Psych: Normal thought pattern. Appropriate mood and affect. Good judgement and insight Appearance: In no acute distress Skin Exam: Normal inspection. Normal color. Warm. Dry Labs/Diagnostic Data Labs Test 06/27/24 06:09 06/26/24 16:35 06/26/24 05:08 06/24/24 19:31 Range/Units White Blood Count 3.6 L 4.4-10.8 10^3/uL Red Blood Count 3.69 L 4.0-5.20 10^6/uL Hemoglobin 12.0 L 12.2-16.2 g/dL Hematocrit 35.5 L 36.0-46.0 % Mean Corpuscular Volume 96.3 80.0-100.0 fL Mean Corpuscular Hemoglobin 32.5 H 28.0-32.0 pg Mean Corpuscular Hemoglobin Concent 33.7 32.0-36.0 g/dL Red Cell Distribution Width 13.7 11.8-14.3 % Platelet Count 141 140-450 10^3/uL Mean Platelet Volume 10.1 6.9-10.8 fL Neutrophils (%) (Auto) 41.4 37.0-80.0 % Lymphocytes (%) (Auto) 40.9 10.0-50.0 % Monocytes (%) (Auto) 15.3 H 0.0-12.0 % Eosinophils (%) (Auto) 1.5 0.0-7.0 % Basophils (%) (Auto) 0.9 0.0-2.0 % Neutrophils # (Auto) 1.5 L 1.6-8.6 10 ^3/uL Lymphocytes # (Auto) 1.5 0.4-5.4 10 ^3/uL Monocytes # (Auto) 0.6 0-1.3 10 ^3/uL Eosinophils # (Auto) 0.1 0-0.8 10 ^3/uL Basophils # (Auto) 0 0-0.2 10 ^3/uL Nucleated Red Blood Cells 0.1 % Sodium Level 145 136-145 mmol/L Potassium Level 3.3 L 3.5-5.1 mmol/L Chloride Level 106 98-107 mmol/L Carbon Dioxide Level 29 20-31 mmol/L Anion Gap 10 5-15 Blood Urea Nitrogen 19 9-23 mg/dL Creatinine 1.29 H 0.550-1.02 mg/dL Glomerular Filtration Rate Calc 42 >90 mL/min BUN/Creatinine Ratio 14.7 10.0-20.0 Serum Glucose 90 74-106 mg/dL Calcium Level 9.9 8.7-10.4 mg/dL Triglycerides Level 124 < 150 mg/dL Cholesterol Level 124 < 200 mg/dL LDL Cholesterol 35 < 100 mg/dL HDL Cholesterol 51 40-59 mg/dL Troponin I High Sensitivity 37 *H </=34 ng/L Total Bilirubin 0.6 0.2-1.0 mg/dL Aspartate Amino Transferase (AST) 20 13-40 U/L Alanine Aminotransferase (ALT) 11 7-40 U/L Alkaline Phosphatase 47 46-116 U/L Total Protein 6.1 5.7-8.2 g/dL Albumin 3.9 3.2-4.8 g/dL Urine Color Light-yellow Yellow Urine Clarity Clear Clear Urine pH 6.0 5.0-9.0 Urine Specific [place] 1.016 1.001-1.035 Urine Protein Negative Negative Urine Ketones Negative Negative Urine Blood Negative Negative /uL Urine Nitrite Negative Negative Urine Bilirubin Negative Negative Urine Urobilinogen Normal Negative mg/dL Urine Leukocyte Esterase Negative Negative /uL Urine RBC <1 0 - 4 /hpf Urine Microscopic WBC 1 0-5 /HPF Urine Squamous Epithelial Cells Few <5 /hpf Urine Bacteria None seen None Seen /hpf Urine Glucose Normal Normal mg/dL Test 06/24/24 17:17 Range/Units D-Dimer, Quantitative 0.91 H 0.0-0.49 mg/L FEU B-Type Natriuretic Peptide 218.34 0-100 pg/mL Assessment Non ST-Elevation myocardial infarction Acute coronary syndrome rule out coronary artery disease Pulmonary hypertension, moderate degree, newly diagnosed Pertinent family history for cardiovascular disease Suggestive Wellen's Syndrome Hypertensive urgency Plan/Recommendation (Dr. Grove) Clinical presentation, twelve-lead electrocardiogram changes, risk factors and a Heart Score of 8 points places the patient at a high risk for major cardiac events. She is scheduled for a coronary angiogram with cardiac catheterization with Dr. Tavarez at first available. All risks and benefits of the procedure were discussed in detail including the risk for LUCY, CVA, coronary dissection, and even . All questions were answered. In the meantime, initiate therapeutic Lovenox, renal hydration, continue blood pressure control, continue single- antiplatelet therapy, and replete electrolytes as necessary. A transthoracic echocardiogram revealed an LVEF of 60% with moderate LVH, left atrium enlargement, and RVSP of 50 mmHg. Continue chest pain protocol. Monitor ECG changes and notify. Thank you for allowing us to participate in this patient's care. Please call if you have any questions or concerns. This medical document was created using an electronic medical record system with voice recognition software and computerized dictation system. Although this document has been carefully reviewed, there might still be some phonetic and typ ographical errors. Occasional wrong-word or ``sound-alike substitutions may have occurred due to the inherent limitations of voice recognition software. These areas are purely typographical due to imperfections of the software programs and do not reflect any compromise in the patient's medical care. Please read the chart carefully and recognize, using context, where these subs titutions have occurred. Plan discussed with: Patient, Spouse, Other NYHA Physical activity limitations: NA Date of Service: June 27, 2024 Billing Provider: CHEMA MCCULLOUGH [facility] Cardiology Common Codes: 37862-[id number] INP/OBS CARE (High) HUNTER GROVE MD 06/28/24 0609: Date Seen: June 27, 2024 Family History: Patient reports no known family medical history. Allergies: Coded Allergies: NO KNOWN ALLERGIES (Unverified , 03/09/10) Home Meds Reported Medications Metoprolol Tartrate (Metoprolol Tartrate) 25 Mg Tab, 1 TAB PO BID, #180 TAB 1 Refill 06/25/24 Folic Asfd-Ricvvzseos-Gzxlzhuy (Folbic) Tab, 1 TAB PO DAILY, #90 TAB 1 Refill 06/25/24 Pregabalin (Pregabalin) 25 Mg Cap, 2 CAP PO 06/25/24 Tramadol Hcl (Tramadol Hcl) 50 Mg Tab, 1 TAB PO 06/25/24 Pregabalin (Pregabalin) 50 Mg Cap, 1 CAP PO 06/25/24 Simvastatin (Zocor) 20 Mg Tab, DAILY 03/09/10 Tramadol Hcl (Rybix Odt) 50 Mg Tab, DAILY 03/09/10 Celecoxib (Celebrex) 200 Mg Cap, DAILY 03/09/10 Lisinopril & Hydrochlorothiazi (Lisinopril/Hydrochlorothi) 1 Tab Tab, DAILY 03/09/10 Atenolol (Atenolol) 100 Mg Tab, DAILY 03/09/10 Amlodipine Besylate (Amlodipine Besylate) 5 Mg Tab, DAILY 03/09/10 Discontinued Reported Medications Metoprolol Succinate (Metoprolol Succinate Er) 25 Mg Tab, 1 TAB PO DAILY, #30 TAB 5 Refills 06/25/24 Plan/Recommendation 79yo F with multiple pains- stomach, jaw, etc. but most importantly having significant shortness of breath that's been worsening. EKG concerning for PA, unable to obtain prior for comparison so unclear if new changes or old. troponin elevated, but could be related to renal dysfunction. Patient is stressed and would like definitive answer. Angiogram is reasonable, we will tentatively add her to the schedule for 06/28. Pending morning labs including troponin, creatinine. She received IV contrast and thus there is concern with giving additional contrast in setting of CKD. We will administer IVF preop and start renal protection prophylaxis with mucomyst. If renal function worse and otherwise clinically stable, can consider medical therapy and stress testing. For medical therapy, aspirin, statin, lovenox/heparin. unfortunately did not receive lovenox second dose. depending on cath/stress test results, will proceed accordingly. Echo largely unremarkable which is reassuring. Dr. Yang to follow patient 06/28. Cardiology Common Codes: [id number] INP/OBS CARE (High) CHEMA MCCULLOUGH June 27, 2024 10:04 HUNTER GROVE MD June 28, 2024 06:09
[2024-06-27] MEDS: SOD CHL 0.45% 1,000 ML IV ONE (10:20)
[2024-06-27] MEDS: POTASSIUM EFFERVESENT TAB 25 MEQ PO ONE (10:30)
--- NOTE | 2024-06-27 11:23 | DVHPN2 ---
Subjective The patient is seen and examined at bedside. No chest pain today. Reviewed: Care Plan, H&P, Labs, Medications, Previous Orders, Radiology Changes from previous H/P or p: No Changes Eyes: No Pain, No Vision change, No Conjunctivae inflammation, No Eyelid inflammation, No Other, No Redness ENT: No Ear pain, No Ear discharge, No Nose pain, No Nose discharge, No Nose congestion, No Mouth pain, No Mouth swelling, No Throat pain, No Throat swelling, No Other Cardiovascular: No Chest Pain, No Palpitations, No Orthopnea, No Paroxysmal Noc. Dyspnea, No Edema, No Lt Headedness, No Other Respiratory: No Cough, No Dry, No SOB with excertion, No Wheezing, No Hemoptysis, No Pleuritic Pain, No Sputum, No Other Gastrointestinal: No Nausea, No Vomiting, No Diarrhea, No Constipation, No Melena, No Hematochezia, No Other Genitourinary: No Dysuria, No Frequency, No Incontinence, No Hematuria, No Retention, No Other Musculoskeletal: No other, No neck pain, No shoulder pain, No arm pain, No back pain, No hand pain, No leg pain, No foot pain Skin: No Rash, No Lesions, No Jaundice, No Bruising, No Other Objective Vitals Vital Signs Date Time Temp Pulse Resp B/P (MAP) Pulse Ox O2 Delivery O2 Flow Rate FiO2 06/27/24 09:00 97.9 89 16 139/91 (107) 96 97.9 06/27/24 08:05 Room Air* 0 21 Intake/Output Intake and Output 06/27/24 07:00 Intake Total 500 ml Balance 500 ml Intake Oral 500 ml # Voids 13 # Bowel Movements 1 General Appearance: Alert, Oriented X3, Cooperative, No acute distress HEENT: Atraumatic, PERRLA, EOMI, Mucous membr. moist/pink Neck: Supple Lungs: Clear to auscultation Cardiovascular: Regular rate, Normal S1, Normal S2 Abdomen: Normal bowel sounds, Soft Neuro: Cranial nerves 3-12 NL Psych/Mental Status: Mental status NL Medications Current Medications Medications Dose Ordered Sig/Jesus Route Start Time Stop Time Status Last Admin Dose Admin Hydralazine HCl 10 mg Q6HP PRN IV 06/25/24 01:45 06/27/24 00:41 10 MG Aspirin 81 mg DAILY PO 06/25/24 10:00 06/27/24 08:47 81 MG Amlodipine Besylate 5 mg DAILY PO 06/25/24 10:00 06/27/24 08:48 5 MG Metoprolol Tartrate 25 mg BID PO 06/25/24 10:00 06/27/24 08:47 25 MG Sodium Chloride 10 ml Q8HR IV 06/25/24 06:00 06/27/24 05:48 10 ML Ondansetron HCl 4 mg Q4HP PRN IV 06/25/24 01:45 06/26/24 21:01 4 MG Docusate Sodium 100 mg BIDPRN PRN PO 06/25/24 01:45 Acetaminophen 650 mg Q6HP PRN PO 06/25/24 01:45 Acetaminophen/ Hydrocodone Bitart 1 tab Q6HPRN PRN PO 06/25/24 02:45 06/27/24 08:46 1 TAB Nitroglycerin 0.4 mg Q5MINP PRN SL 06/25/24 03:15 Morphine Sulfate 2 mg Q30M PRN IV 06/25/24 03:15 Atorvastatin Calcium 40 mg HS PO 06/26/24 22:00 06/26/24 21:01 40 MG Furosemide 20 mg DAILY IV 06/27/24 10:00 06/27/24 08:48 20 MG Laboratory Results Laboratory Tests 06/27/24 06:09 Chemistry Test 06/27/24 06:09 Calcium Level 9.9 mg/dL (8.7-10.4) Magnesium Level 1.8 mg/dL (1.6-2.6) Lipid panel Test 06/27/24 06:09 Cholesterol Level 124 mg/dL (< 200) HDL Cholesterol 51 mg/dL (40-59) Triglycerides Level 124 mg/dL (< 150) HgA1c, TSH Test 06/27/24 06:09 Hemoglobin A1c 4.9 % A1C (<5.7) Thyroid Stimulating Hormone (TSH) 1.01 uIU/mL (0.55-4.78) Urinalysis Test 06/24/24 19:31 Urine Color Light-yellow (Yellow) Urine Clarity Clear (Clear) Urine pH 6.0 (5.0-9.0) Urine Specific [place] 1.016 (1.001-1.035) Urine Protein Negative (Negative) Urine Ketones Negative (Negative) Urine Blood Negative /uL (Negative) Urine Nitrite Negative (Negative) Urine Bilirubin Negative (Negative) Urine Urobilinogen Normal mg/dL (Negative) Urine Leukocyte Esterase Negative /uL (Negative) Urine RBC <1 /hpf (0 - 4) Urine Microscopic WBC 1 /HPF (0-5) Urine Squamous Epithelial Cells Few /hpf (<5) Urine Bacteria None seen /hpf (None Seen) Urine Glucose Normal mg/dL (Normal) Labs and/or images reviewed: Labs reviewed by me Assessment/Plan Assessment/Plan Non ST-elevation [place] Chest Pain syndrome Hypertensive urgency Pulmonary hypertension Continuing current management. We will follow up with 2D echo. Enterprise Resource Planning Consultant's input appreciated Waiting for cardiac catheterization in a.m. Continuing Lasix This medical document was created using an electronic medical record system with [employer] computerized dictation system. Although this document has been carefully reviewed, there may still be some phonetic and typographical errors. These areas are purely typographical due to imperfections of the software programs, and do not reflect any compromise in the patient's medical care. Plan discussed with: Patient Date of Service: June 27, 2024 Billing Provider: EDUARD ALVARES MD Common Visit Codes: [id number] INP/OBS CARE(HIGH) EDUARD ALVARES MD June 27, 2024 11:23
[2024-06-27] MEDS: ENOXAPARIN SOD 60 MG/0.6 ML SYRINGE SC ONE (13:22)
[2024-06-27] MEDS: NTG 0.1MG/HR TOPICAL PATCH TD ONE (13:23)
[2024-06-27] MEDS: ENOXAPARIN SOD 60 MG/0.6 ML SYRINGE SC SCH (21:08)
[2024-06-28] VITALS (12 sets, daily range): BP systolic 105–168; BP diastolic 59–105; PULSE 57–141; RESP 12–20; TEMP 97.4–97.9; O2SAT 93–100
[2024-06-28] MEDS: ACETYLCYSTEINE ORAL for CIN 20%(200MG/ML) 4ML PO SCH (07:30)
[2024-06-28 08:01] LABS: Anion Gap 11 (5-15); Carbon Dioxide 28 mmol/L (20-31); Chloride 103 mmol/L (98-107); Sodium 142 mmol/L (136-145)
[2024-06-28 08:02] LABS: Basophils # (auto) 0 10 ^3/uL (0-0.2); Basophils % (auto) 0.6 % (0.0-2.0); Calcium 9.7 mg/dL (8.7-10.4); Eosinophils # (auto) 0.1 10 ^3/uL (0-0.8); Eosinophils % (auto) 1.6 % (0.0-7.0); Hemoglobin 12.2 g/dL (12.2-16.2); Lymphocytes # (auto) 1.7 10 ^3/uL (0.4-5.4); Lymphocytes % (auto) 43.4 % (10.0-50.0); Mean Corpuscular Hemoglobin 32.6 pg (28.0-32.0); Mean Corpuscular Hgb Conc. 33.9 g/dL (32.0-36.0); Mean Corpuscular Volume 96.3 fL (80.0-100.0); Monocytes # (auto) 0.5 10 ^3/uL (0-1.3); Neutrophils # (auto) 1.6 10 ^3/uL (1.6-8.6); Neutrophils % (auto) 40.4 % (37.0-80.0); Nucleated Red Blood Cells % 0.1 %; Platelet Count (auto) 143 10^3/uL (140-450); Red Blood Cells 3.74 10^6/uL (4.0-5.20); Red Cell Distribution Width 13.8 % (11.8-14.3); White Blood Cell 3.9 10^3/uL (4.4-10.8)
[2024-06-28 08:05] LABS: INR 1.13 (0.9-1.15); Partial Thromboplastin Time 27.6 SEC (24.5-34.5); Prothrombin Time 11.8 sec (9.3-11.8)
--- NOTE | 2024-06-28 08:05 | ECG ---
[facility] Test Date: 2024-06-28 Test Time: 06:35:55 Pat Name: PATTI LANE Department: Room: 0293T A Gender: F Arterial Embalmer: : 1945 Requested By: EDUARD ALVARES Order Number: [id number] Reading MD: Santino Tavarez Measurements Intervals [place] Rate: 106 P: 20 DE: 188 QRS: 1 QRSD: 85 T: 110 QT: 321 QTc: 427 Interpretive Statements Sinus tachycardia Multiple premature complexes, vent & supraven LVH with secondary repolarization abnormality ST elevation, consider lateral injury Baseline wander in lead(s) V6 Electronically Signed On 06-29-2024 20:05:06 PDT by Santino Tavarez Please click the below link to view image of tracing.
[2024-06-28 08:07] LABS: BUN/Creatinine Ratio 15.1 (10.0-20.0); Blood Urea Nitrogen 19 mg/dL (9-23); Glucose 106 mg/dL (74-106)
[2024-06-28 08:20] LABS: Potassium 3.3 mmol/L (3.5-5.1)
--- NOTE | 2024-06-28 08:32 | ECG ---
[facility] Test Date: 2024-06-28 Test Time: 08:29:47 Pat Name: PATTI LANE Department: Room: 0293T A Gender: F Director Sales Support: JOSE : 1945 Requested By: HUNTER LIU Order Number: [id number] Reading MD: Santino Tavarez Measurements Intervals [place] Rate: 113 P: -10 MN: 182 QRS: 17 QRSD: 82 T: 120 QT: 343 QTc: 471 Interpretive Statements Sinus tachycardia Abnormal R-wave progression, early transition Left ventricular hypertrophy Abnrm T, consider ischemia, anterolateral lds Electronically Signed On 06-29-2024 20:06:37 PDT by Santino Tavarez Please click the below link to view image of tracing.
[2024-06-28] MEDS: MORPHINE SULFATE INJ 2 MG/ml SYRG IV PRN (08:37)
[2024-06-28] MEDS: SODIUM CHLORIDE 0.9% 250 ML IV ONE (08:51)
[2024-06-28] MEDS: IODIXANOL 320MG/ML 100ML BTL IV ONE (10:00)
[2024-06-28] MEDS ORDERED: ENOXAPARIN SOD 60 MG/0.6 ML SYRINGE SC SCH (10:00)
[2024-06-28] MEDS: ANGIOMAX 250 MG VIAL IV ONE (10:03)
[2024-06-28] MEDS: HEPARIN SODIUM (PORCINE) 5000 UNITS/ML 1ML VIAL ONE (10:03)
[2024-06-28] MEDS: VERAPAMIL 2.5MG/ML INJ 2ML VIAL IV ONE (10:03)
[2024-06-28] MEDS: SODIUM CHL 0.9% 0 ML ONE (10:04)
[2024-06-28] MEDS: LIDOCAINE 2%HCL (LOCAL ANESTH.) INJ 20ML MDV ONE ×2 (10:04→10:10)
[2024-06-28] MEDS: MIDAZOLAM HCL 2MG/2ML 2ml VIAL (1mg/ml) ONE (10:04)
[2024-06-28] MEDS: fentaNYL CITRATE 100 MCG/2 ML VL ONE (10:04)
--- NOTE | 2024-06-28 11:13 | DVHOP2 ---
Operative Report - 2 Report Details Date: 06/28/24 Preop Diagnosis: CAD. Postop Diagnosis: Mild CAD Surgeon: Hue Tavarez MD Anesthesiologist: Conscious sedation Anesthesia: Mac, Local Consent: The patient was informed of the risks and benefits of the procedure. These include but are not limited to complications of anesthesia, postoperative infection, incomplete relief of symptoms, recurrence of symptoms, damage to blood vessels, nerves and tendons, deep venous thrombosis, pulmonary embolism and possible need for repeat surgery in the future. Complications: No complications Estimated Blood Loss: 5 cc Findings: Mild circumflex stenosis Indications for Surgery: Chest pain Name of Procedure Performed Left heart catheterization bilateral cine coronary angiography. Left ventriculography. Procedure Details Procedure Details: Prior local anesthesia with 2% lidocaine to the right wrist and full informed consent obtained the patient was prepped and draped in usual fashion followed by placement of a six [place] sheath into the radial artery through which a Memanuel catheter was used for ventriculography and cannulation of RCA. A 3-0 EBU guide was used to cannulate the left main coronary artery. Hemodynamics: Aortic blood pressure was 110/70. End-diastolic pressure was five. There was no gradient across the aortic valve on pullback. Coronary anatomy: The RCA has moderate plaquing in his a large vessel. There was no stenosis in its proximal mid or distal segments. The PDA and posterolateral branches are normal. Left main is large and normal. Left anterior descending is large and normal with two diagonals free of significant disease. Septals and diagonals are normal. The circumflex is large it was codominant. It gives off a large marginal branch that is normal. The circumflex and its proximal and mid section is normal. The circumflex distal to the obtuse marginal branches a 60-70% stenosis. It does not appear to be flow limiting. Moderate-sized posterolateral branches arise and they are normal. Ventriculography in the GUY projection shows an EF of 60%. Impression: Normal left ventricular end-diastolic pressure rest normal ejection fraction. Mild CAD involving the distal circumflex. Recommendations: Medical therapy is warranted continue with risk factor modification. Condition Good Disposition Still a Patient Date of Service: June 28, 2024 Billing Provider: HUE TAVAREZ Sr., MD Cardiology Common Codes: [id number] INP/OBS CARE (High) Cardiology Procedure Codes: 88052-EHYXOY VESSEL W/I VASC FAM, 55828-HXAN ADD CORONARY BRANCH, 40589-BNEZ HEART CATH W/INTRA INJ HUE TAVAREZ Sr., MD June 28, 2024 11:13
[2024-06-28] MEDS: LORazepam 2MG/ML-1ML VIAL IV PRN (13:30)
[2024-06-28] MEDS: HALOPERIDOL LACTATE 5 MG/ML INJ VIAL IM PRN (15:12)
--- NOTE | 2024-06-28 22:44 | DVHPN2 ---
Subjective Patient is seen and examined at bedside. The patient is status post cardiac catheterization. The patient is very confused and agitated Reviewed: Care Plan, H&P, Labs, Medications, Previous Orders, Radiology Changes from previous H/P or p: No Changes Eyes: No Pain, No Vision change, No Conjunctivae inflammation, No Eyelid inflammation, No Other, No Redness ENT: No Ear pain, No Ear discharge, No Nose pain, No Nose discharge, No Nose congestion, No Mouth pain, No Mouth swelling, No Throat pain, No Throat swelling, No Other Cardiovascular: No Chest Pain, No Palpitations, No Orthopnea, No Paroxysmal Noc. Dyspnea, No Edema, No Lt Headedness, No Other Respiratory: No Cough, No Dry, No SOB with excertion, No Wheezing, No Hemoptysis, No Pleuritic Pain, No Sputum, No Other Gastrointestinal: No Nausea, No Vomiting, No Diarrhea, No Constipation, No Melena, No Hematochezia, No Other Genitourinary: No Dysuria, No Frequency, No Incontinence, No Hematuria, No Retention, No Other Musculoskeletal: No other, No neck pain, No shoulder pain, No arm pain, No back pain, No hand pain, No leg pain, No foot pain Skin: No Rash, No Lesions, No Jaundice, No Bruising, No Other Objective Vitals Vital Signs Date Time Temp Pulse Resp B/P (MAP) Pulse Ox O2 Delivery O2 Flow Rate FiO2 06/28/24 21:52 130 146/85 06/28/24 11:58 20 94 06/28/24 09:00 97.8 97.8 06/28/24 08:00 Room Air* 0 21 Intake/Output Intake and Output 06/28/24 07:00 Intake Total 0 ml Balance 0 ml Intake Oral 0 ml # Voids 10 # Bowel Movements 3 General Appearance: Alert, Cooperative, moderate distress, Other (Confused and agitated) HEENT: PERRLA, EOMI, Mucous membr. moist/pink Neck: Supple Lungs: Clear to auscultation Cardiovascular: Regular rate, Normal S1, Normal S2 Abdomen: Normal bowel sounds, Soft, No tenderness Neuro: Cranial nerves 3-12 NL Psych/Mental Status: Mental status NL Medications Current Medications Medications Dose Ordered Sig/Jesus Route Start Time Stop Time Status Last Admin Dose Admin Hydralazine HCl 10 mg Q6HP PRN IV 06/25/24 01:45 06/28/24 12:00 10 MG Aspirin 81 mg DAILY PO 06/25/24 10:00 06/27/24 08:47 81 MG Amlodipine Besylate 5 mg DAILY PO 06/25/24 10:00 06/27/24 08:48 5 MG Metoprolol Tartrate 25 mg BID PO 06/25/24 10:00 06/28/24 21:52 25 MG Sodium Chloride 10 ml Q8HR IV 06/25/24 06:00 06/28/24 14:52 10 ML Ondansetron HCl 4 mg Q4HP PRN IV 06/25/24 01:45 06/27/24 16:30 4 MG Docusate Sodium 100 mg BIDPRN PRN PO 06/25/24 01:45 Acetaminophen 650 mg Q6HP PRN PO 06/25/24 01:45 Acetaminophen/ Hydrocodone Bitart 1 tab Q6HPRN PRN PO 06/25/24 02:45 06/27/24 23:18 1 TAB Morphine Sulfate 2 mg Q30M PRN IV 06/25/24 03:15 06/28/24 08:37 2 MG Atorvastatin Calcium 40 mg HS PO 06/26/24 22:00 06/28/24 21:52 40 MG Acetylcysteine 600 mg BID PO 06/28/24 07:30 06/30/24 07:29 06/28/24 21:52 600 MG Lorazepam 1 mg Q4HP PRN IV 06/28/24 13:30 06/28/24 18:05 1 MG Haloperidol Lactate 3 mg Q8HP PRN IM 06/28/24 15:00 06/28/24 15:12 3 MG Laboratory Results Laboratory Tests 06/28/24 06:40 Chemistry Test 06/28/24 06:40 Calcium Level 9.7 mg/dL (8.7-10.4) Coagulation Test 06/28/24 06:40 Prothrombin Time 11.8 sec (9.3-11.8) Prothrombin Time INR 1.13 (0.9-1.15) Activated Partial Thromboplast Time 27.6 SEC (24.5-34.5) Cardiac Markers Test 06/28/24 06:40 B-Type Natriuretic Peptide 286.80 pg/mL (0-100) Urinalysis Test 06/24/24 19:31 Urine Color Light-yellow (Yellow) Urine Clarity Clear (Clear) Urine pH 6.0 (5.0-9.0) Urine Specific [place] 1.016 (1.001-1.035) Urine Protein Negative (Negative) Urine Ketones Negative (Negative) Urine Blood Negative /uL (Negative) Urine Nitrite Negative (Negative) Urine Bilirubin Negative (Negative) Urine Urobilinogen Normal mg/dL (Negative) Urine Leukocyte Esterase Negative /uL (Negative) Urine RBC <1 /hpf (0 - 4) Urine Microscopic WBC 1 /HPF (0-5) Urine Squamous Epithelial Cells Few /hpf (<5) Urine Bacteria None seen /hpf (None Seen) Urine Glucose Normal mg/dL (Normal) Labs and/or images reviewed: Labs reviewed by me Assessment/Plan Assessment/Plan NSTEMI status post cardiac catheterization Acute toxic encephalopathy Severe agitation post cardiac catheterization possible secondary to reaction to sedation medication Hypertension Pulmonary hypertension Continuing current management. I will add Ativan 1 mg p.o. q.4 hours PRN for anxiety. So Haldol 3 mg IM Q eight hours p.r.n. for severe agitation Continuing hypertensive medication This medical document was created using an electronic medical record system with [employer] direct computerized dictation system. Although this document has been carefully reviewed, there may still be some phonetic and typographical errors. These areas are purely typographical due to imperfections of the software programs, and do not reflect any compromise in the patient's medical care. Plan discussed with: Patient My Orders Orders - EDUARD ALVARES MD Procedure Category Date Status Time Electrocardigram EKG 06/28/24 Logged 08:38 Lorazepam 2mg/Ml Inj PHA 06/28/24 In Process (Ativan Inj) 13:30 Haloperidol Lactate PHA 06/28/24 In Process Injection (Haldol) 15:00 Date of Service: June 28, 2024 Billing Provider: EDUARD ALVARES MD Common Visit Codes: [id number] INP/OBS CARE(HIGH) EDUARD ALVARES MD June 28, 2024 22:44
[2024-06-29] VITALS (7 sets, daily range): BP systolic 139–153; BP diastolic 71–95; PULSE 93–124; RESP 16–20; TEMP 97.4–98.1; O2SAT 94–99
[2024-06-29] MEDS: SODIUM CHLORIDE 0.9% 250 ML IV ONE (01:27)
--- NOTE | 2024-06-29 09:51 | DVHPN2 ---
Consult Progress Note Date Seen: June 29, 2024 Subjective Other Systems: Sitter at bedside, ALOC, agitated Objective vital signs Vital Sign Date Time Temp Pulse Resp B/P (MAP) Pulse Ox O2 Delivery O2 Flow Rate FiO2 06/29/24 09:26 98.0 112 16 152/71 (98) 94 98.0 06/28/24 20:00 Nasal Cannula* 2 28 Total Intake and Output 06/28/24 06/28/24 06/29/24 15:00 23:00 07:00 Intake Total 250 ml 300 ml Balance 250 ml 300 ml medications Current Medications Medications Dose Ordered Sig/Jesus Route Start Time Stop Time Status Last Admin Dose Admin Hydralazine HCl 10 mg Q6HP PRN IV 06/25/24 01:45 06/28/24 12:00 Aspirin 81 mg DAILY PO 06/25/24 10:00 06/27/24 08:47 Amlodipine Besylate 5 mg DAILY PO 06/25/24 10:00 06/27/24 08:48 Metoprolol Tartrate 25 mg BID PO 06/25/24 10:00 06/27/24 21:06 Sodium Chloride 10 ml Q8HR IV 06/25/24 06:00 06/29/24 06:32 Ondansetron HCl 4 mg Q4HP PRN IV 06/25/24 01:45 06/27/24 16:30 Docusate Sodium 100 mg BIDPRN PRN PO 06/25/24 01:45 Acetaminophen 650 mg Q6HP PRN PO 06/25/24 01:45 Acetaminophen/ Hydrocodone Bitart 1 tab Q6HPRN PRN PO 06/25/24 02:45 06/27/24 23:18 Morphine Sulfate 2 mg Q30M PRN IV 06/25/24 03:15 06/28/24 08:37 Atorvastatin Calcium 40 mg HS PO 06/26/24 22:00 06/28/24 21:52 Acetylcysteine 600 mg BID PO 06/28/24 07:30 06/30/24 07:29 Lorazepam 1 mg Q4HP PRN IV 06/28/24 13:30 06/29/24 06:32 Haloperidol Lactate 3 mg Q8HP PRN IM 06/28/24 15:00 06/28/24 15:12 Examination: GENERAL:Abnormal (Agitates, uneasy, restless), LUNGS:Normal, CVS:Normal, NEURO:Abnormal (ALOC) laboratory and microbiology Laboratory Tests 06/28/24 06:40 Test 06/28/24 06:40 Range/Units Serum Glucose 106 74-106 mg/dL Problem List/Assessment/Plan Problem List/Assessment/Plan Non ST-Elevation myocardial infarction Acute coronary syndrome status post [facility] with mild CAD Pulmonary hypertension, moderate degree, newly diagnosed Pertinent family history for cardiovascular disease Suggestive Wellen's Syndrome Hypertensive urgency Emergence agitation Plan/Recommendation (Dr. Tavarez) The patient underwent a coronary angiogram with cardiac catheterization revealing mild coronary artery disease involving the distal LCx for which patient should continue single-antiplatelet therapy and lipid lowering agent along with risk factor modification and lifestyle changes. A transthoracic echocardiogram revealed an LVEF of 60% with moderate LVH, left atrium enlargement, and RVSP of 50 mmHg. Per , patient continue with complains of SOB. Obtain a repeat CXR with primary team to follow up on results as well as renal function prior to discharge. Likely emergence agitation secondary to sedation. There is no further cardiac work-up indicated at this time. Kindly call if in need to reconsult. Thank you for allowing us to participate in this patient's care. This medical document was created using an electronic medical record system with voice recognition software and computerized dictation system. Although this document has been carefully reviewed, there might still be some phonetic and typographical errors. Occasional wrong-word or ``sound-alike substitutions may have occurred due to the inherent limitations of voice recognition software. These areas are purely typographical due to imperfections of the software programs and do not reflect any compromise in the patient's medical care. Please read the chart carefully and recognize, using context, where these substitutions have occurred. Plan discussed with: Spouse, Other Date of Service: June 29, 2024 Billing Provider: CHEMA MCCULLOUGH Cardiology Common Codes: [id number] HOSP CARE([facility] CHEMA MCCULLOUGH June 29, 2024 09:51
--- NOTE | 2024-06-29 11:32 | DVH ---
INDICATION: SOB TECHNIQUE: Frontal view of the chest. COMPARISON: XY CHEST PORTABLE on DOS: 06/24/24 FINDINGS: . The heart and mediastinal contours are grossly unremarkable. There is no evidence of pleural disea se. The lungs are clear. The bony structures of the chest are intact without fracture. IMPRESSION: 1. No evidence of acute disease.
--- NOTE | 2024-06-29 11:53 | DVH ---
EXAM: CT HEAD WITHOUT CONTRAST HISTORY: r/o cva COMPARISON: None TECHNIQUE: Noncontrast axial CT images of the head were performed. Sagittal and coronal reformatted i mages were obtained. This CT exam was performed using 1 or more of the following dose reduction techn iques: Automated exposure control, adjustment of the mA and/or kv according to patient size, or the u se of iterative reconstruction techniques. Radiation Dose: CTDI volume is 48.21 mGy. Dose-length product is 872.46 mGy*cm FINDINGS: There is mild global brain atrophy. There is moderate decreased attenuation in the periventricular wh ite matter. 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 No intracranial hemorrhage, mass, midline shift, hydrocephalus, or evidence of a cute large vessel infarct. Possible empty sella versus artifactual appearance. There are atherosclero tic calcifications of the cavernous ICAs. There are postoperative changes of bilateral cataract extra ction surgery. The paranasal sinuses are clear. The bilateral mastoid air cells and middle ear space s are clear. No cranial fracture or scalp edema. IMPRESSION: Chronic ischemic changes without evidence of acute intracranial process.
--- NOTE | 2024-06-29 12:11 | DVHPN2 ---
Subjective Patient is seen and examined at bedside. The patient is status post cardiac catheterization. The patient is very confused and agitated Reviewed: Care Plan, H&P, Labs, Medications, Previous Orders, Radiology Changes from previous H/P or p: No Changes Eyes: No Pain, No Vision change, No Conjunctivae inflammation, No Eyelid inflammation, No Other, No Redness ENT: No Ear pain, No Ear discharge, No Nose pain, No Nose discharge, No Nose congestion, No Mouth pain, No Mouth swelling, No Throat pain, No Throat swelling, No Other Cardiovascular: No Chest Pain, No Palpitations, No Orthopnea, No Paroxysmal Noc. Dyspnea, No Edema, No Lt Headedness, No Other Respiratory: No Cough, No Dry, No SOB with excertion, No Wheezing, No Hemoptysis, No Pleuritic Pain, No Sputum, No Other Gastrointestinal: No Nausea, No Vomiting, No Diarrhea, No Constipation, No Melena, No Hematochezia, No Other Genitourinary: No Dysuria, No Frequency, No Incontinence, No Hematuria, No Retention, No Other Musculoskeletal: No other, No neck pain, No shoulder pain, No arm pain, No back pain, No hand pain, No leg pain, No foot pain Skin: No Rash, No Lesions, No Jaundice, No Bruising, No Other Objective Vitals Vital Signs Date Time Temp Pulse Resp B/P (MAP) Pulse Ox O2 Delivery O2 Flow Rate FiO2 06/29/24 09:26 98.0 112 16 152/71 (98) 94 98.0 06/28/24 20:00 Nasal Cannula* 2 28 Intake/Output Intake and Output 06/29/24 07:00 Intake Total 550 ml Balance 550 ml Intake Oral 300 ml IV Total 250 ml # Voids 3 General Appearance: Alert, Cooperative, moderate distress, Other (Confused and agitated) HEENT: PERRLA, EOMI, Mucous membr. moist/pink Neck: Supple Lungs: Clear to auscultation Cardiovascular: Regular rate, Normal S1, Normal S2 Abdomen: Normal bowel sounds, Soft, No tenderness Neuro: Cranial nerves 3-12 NL Psych/Mental Status: Mental status NL Medications Current Medications Medications Dose Ordered Sig/Jesus Route Start Time Stop Time Status Last Admin Dose Admin Hydralazine HCl 10 mg Q6HP PRN IV 06/25/24 01:45 06/28/24 12:00 10 MG Aspirin 81 mg DAILY PO 5/4/25 10:00 06/27/24 08:47 81 MG Amlodipine Besylate 5 mg DAILY PO 06/25/24 10:00 06/27/24 08:48 5 MG Metoprolol Tartrate 25 mg BID PO 06/25/24 10:00 06/27/24 21:06 25 MG Sodium Chloride 10 ml Q8HR IV 06/25/24 06:00 06/29/24 06:32 10 ML Ondansetron HCl 4 mg Q4HP PRN IV 06/25/24 01:45 06/27/24 16:30 4 MG Docusate Sodium 100 mg BIDPRN PRN PO 06/25/24 01:45 Acetaminophen 650 mg Q6HP PRN PO 06/25/24 01:45 Acetaminophen/ Hydrocodone Bitart 1 tab Q6HPRN PRN PO 06/25/24 02:45 06/27/24 23:18 1 TAB Morphine Sulfate 2 mg Q30M PRN IV 06/25/24 03:15 06/28/24 08:37 2 MG Atorvastatin Calcium 40 mg HS PO 06/26/24 22:00 06/28/24 21:52 40 MG Acetylcysteine 600 mg BID PO 06/28/24 07:30 06/30/24 07:29 Lorazepam 1 mg Q4HP PRN IV 06/28/24 13:30 06/29/24 06:32 1 MG Haloperidol Lactate 3 mg Q8HP PRN IM 06/28/24 15:00 06/28/24 15:12 3 MG Ceftriaxone Sodium 50 ml @ 100 mls/hr DAILY@09 IV 06/30/24 09:00 Laboratory Results Laboratory Tests 06/28/24 06:40 Urinalysis Test 06/24/24 19:31 Urine Color Light-yellow (Yellow) Urine Clarity Clear (Clear) Urine pH 6.0 (5.0-9.0) Urine Specific [place] 1.016 (1.001-1.035) Urine Protein Negative (Negative) Urine Ketones Negative (Negative) Urine Blood Negative /uL (Negative) Urine Nitrite Negative (Negative) Urine Bilirubin Negative (Negative) Urine Urobilinogen Normal mg/dL (Negative) Urine Leukocyte Esterase Negative /uL (Negative) Urine RBC <1 /hpf (0 - 4) Urine Microscopic WBC 1 /HPF (0-5) Urine Squamous Epithelial Cells Few /hpf (<5) Urine Bacteria None seen /hpf (None Seen) Urine Glucose Normal mg/dL (Normal) Labs and/or images reviewed: Labs reviewed by me Assessment/Plan Assessment/Plan NSTEMI status post cardiac catheterization Acute toxic encephalopathy Severe agitation post cardiac catheterization possible secondary to reaction to sedation medication Hypertension Pulmonary hypertension Continuing current management. I will add Ativan 1 mg p.o. q.4 hours PRN for anxiety. So Haldol 3 mg IM Q eight hours p.r.n. for severe agitation Continuing hypertensive medication Less agitate today. Will continue management. Hopefully can be dc when less agitate and confuse. This medical document was created using an electronic medical record system with [employer] computerized dictation system. Although this document has been carefully reviewed, there may still be some phonetic and typographical errors. These areas are purely typographical due to imperfections of the software programs, and do not reflect any compromise in the patient's medical care. Plan discussed with: Patient, Spouse My Orders Orders - EDUARD ALVARES MD Procedure Category Date Status Time Lorazepam 2mg/Ml Inj PHA 06/28/24 In Process (Ativan Inj) 13:30 Haloperidol Lactate PHA 06/28/24 In Process Injection (Haldol) 15:[address] 06/29/24 Resulted 10:46 Date of Service: June 29, 2024 Billing Provider: EDUARD ALVARES MD Common Visit Codes: [id number] INP/OBS CARE(HIGH) EDUARD ALVARES MD June 29, 2024 12:11
[2024-06-29] MEDS: ACETAMINOPHEN 325 MG TAB PO PRN (12:21)
[2024-06-29] MEDS: cefTRIAXone 1GM/50ML D5W 50 ML IV ONE (12:24)
[2024-06-29 14:24] LABS: Basophils # (auto) 0.1 10 ^3/uL (0-0.2); Basophils % (auto) 0.8 % (0.0-2.0); Eosinophils # (auto) 0 10 ^3/uL (0-0.8); Hematocrit 33.9 % (36.0-46.0); Hemoglobin 11.4 g/dL (12.2-16.2); Lymphocytes % (auto) 12.3 % (10.0-50.0); Mean Corpuscular Hemoglobin 32.5 pg (28.0-32.0); Mean Corpuscular Hgb Conc. 33.8 g/dL (32.0-36.0); Mean Corpuscular Volume 96.3 fL (80.0-100.0); Monocytes % (auto) 13.3 % (0.0-12.0); Neutrophils # (auto) 5.7 10 ^3/uL (1.6-8.6); Neutrophils % (auto) 73.6 % (37.0-80.0); Nucleated Red Blood Cells % 0.1 %; Platelet Count (auto) 115 10^3/uL (140-450); Red Blood Cells 3.52 10^6/uL (4.0-5.20); Red Cell Distribution Width 13.8 % (11.8-14.3); White Blood Cell 7.8 10^3/uL (4.4-10.8)
[2024-06-29 14:40] LABS: Alanine Aminotransferase 38 U/L (7-40); Alkaline Phosphatase 48 U/L (46-116); Anion Gap 12 (5-15); Blood Urea Nitrogen 17 mg/dL (9-23); Calcium 9.1 mg/dL (8.7-10.4); Carbon Dioxide 27 mmol/L (20-31); Chloride 104 mmol/L (98-107); Magnesium 1.8 mg/dL (1.6-2.6); Sodium 143 mmol/L (136-145); Total Protein 6.9 g/dL (5.7-8.2)
[2024-06-29 14:41] LABS: Albumin 4.5 g/dL (3.2-4.8); Aspartate Aminotransferase 155 U/L (13-40); Bilirubin, Total 1.2 mg/dL (0.2-1.0); Glucose 116 mg/dL (74-106); Potassium 3.5 mmol/L (3.5-5.1)
[2024-06-29] MEDS: POTASSIUM CHL 20 Meq TABLET PO ONE (15:35)
[2024-06-30 01:00] VITALS: BP 134/73; PULSE 79; RESP 18; TEMP 97.8; O2SAT 98
[2024-06-30 05:00] VITALS: BP 127/87; PULSE 89; RESP 17; TEMP 98.1; O2SAT 99
[2024-06-30 07:50] LABS: Basophils # (auto) 0 10 ^3/uL (0-0.2); Basophils % (auto) 0.3 % (0.0-2.0); Eosinophils # (auto) 0 10 ^3/uL (0-0.8); Eosinophils % (auto) 0.6 % (0.0-7.0); Hematocrit 33.1 % (36.0-46.0); Hemoglobin 11.2 g/dL (12.2-16.2); Lymphocytes # (auto) 1.1 10 ^3/uL (0.4-5.4); Lymphocytes % (auto) 18.7 % (10.0-50.0); Mean Corpuscular Hemoglobin 32.5 pg (28.0-32.0); Mean Corpuscular Hgb Conc. 33.7 g/dL (32.0-36.0); Mean Corpuscular Volume 96.4 fL (80.0-100.0); Monocytes # (auto) 0.8 10 ^3/uL (0-1.3); Monocytes % (auto) 14.1 % (0.0-12.0); Neutrophils # (auto) 3.7 10 ^3/uL (1.6-8.6); Neutrophils % (auto) 66.3 % (37.0-80.0); Platelet Count (auto) 117 10^3/uL (140-450); Red Blood Cells 3.43 10^6/uL (4.0-5.20); Red Cell Distribution Width 13.9 % (11.8-14.3); White Blood Cell 5.6 10^3/uL (4.4-10.8)
[2024-06-30 08:00] VITALS: PULSE 90; O2SAT 94
[2024-06-30 08:09] LABS: Albumin 4.3 g/dL (3.2-4.8); Alkaline Phosphatase 50 U/L (46-116); Anion Gap 10 (5-15); BUN/Creatinine Ratio 15.1 (10.0-20.0); Blood Urea Nitrogen 18 mg/dL (9-23); Carbon Dioxide 26 mmol/L (20-31); Chloride 106 mmol/L (98-107); Glucose 99 mg/dL (74-106); Potassium 3.8 mmol/L (3.5-5.1); Sodium 142 mmol/L (136-145); Total Protein 6.8 g/dL (5.7-8.2)
[2024-06-30 08:10] LABS: Alanine Aminotransferase 46 U/L (7-40); Aspartate Aminotransferase 144 U/L (13-40); Bilirubin, Total 1.5 mg/dL (0.2-1.0)
--- NOTE | 2024-06-30 08:11 | ECG ---
[facility] Test Date: 2024-06-29 Test Time: 10:42:37 Pat Name: PATTI LANE Department: Room: 0293T A Gender: F [employer] Supervisor: jodie : 1945 Requested By: EDUARD ALVARES Order Number: [id number] Reading MD: Measurements Intervals [place] Rate: 120 P: 78 WV: 181 QRS: 53 QRSD: 84 T: -65 QT: 331 QTc: 468 Interpretive Statements Sinus tachycardia Multiple premature complexes, vent & supraven Left ventricular hypertrophy Abnormal T, consider ischemia, inferior leads Baseline wander in lead(s) V1 Please click the below link to view image of tracing.
[2024-06-30 09:00] VITALS: BP 112/64; PULSE 101; RESP 18; TEMP 98.4; O2SAT 94
[2024-06-30] MEDS: cefTRIAXone 1GM/50ML D5W 50 ML IV SCH (10:20)
--- NOTE | 2024-06-30 12:51 | DVHPN2 ---
Subjective Patient is seen and examined at bedside. The patient is status post cardiac catheterization. The patient is very confused and agitated Reviewed: Care Plan, H&P, Labs, Medications, Previous Orders, Radiology Eyes: No Pain, No Vision change, No Conjunctivae inflammation, No Eyelid inflammation, No Other, No Redness ENT: No Ear pain, No Ear discharge, No Nose pain, No Nose discharge, No Nose congestion, No Mouth pain, No Mouth swelling, No Throat pain, No Throat swelling, No Other Cardiovascular: No Chest Pain, No Palpitations, No Orthopnea, No Paroxysmal Noc. Dyspnea, No Edema, No Lt Headedness, No Other Respiratory: No Cough, No Dry, No SOB with excertion, No Wheezing, No Hemoptysis, No Pleuritic Pain, No Sputum, No Other Gastrointestinal: No Nausea, No Vomiting, No Diarrhea, No Constipation, No Melena, No Hematochezia, No Other Genitourinary: No Dysuria, No Frequency, No Incontinence, No Hematuria, No Retention, No Other Musculoskeletal: No other, No neck pain, No shoulder pain, No arm pain, No back pain, No hand pain, No leg pain, No foot pain Skin: No Rash, No Lesions, No Jaundice, No Bruising, No Other Objective Vitals Vital Signs Date Time Temp Pulse Resp B/P (MAP) Pulse Ox O2 Delivery O2 Flow Rate FiO2 06/30/24 10:20 101 112/64 06/30/24 09:00 98.4 18 94 98.4 06/29/24 20:00 Nasal Cannula* 2 28 Intake/Output Intake and Output 06/30/24 07:00 Intake Total 1050 ml Output Total 350 ml Balance 700 ml Intake Oral 1000 ml IV Total 50 ml Output Urine Total 350 ml # Voids 4 # Bowel Movements 1 General Appearance: Alert, Cooperative, moderate distress, Other (Confused and agitated) HEENT: PERRLA, EOMI, Mucous membr. moist/pink Neck: Supple Lungs: Clear to auscultation Cardiovascular: Regular rate, Normal S1, Normal S2 Abdomen: Normal bowel sounds, Soft, No tenderness Neuro: Cranial nerves 3-12 NL Psych/Mental Status: Mental status NL Medications Current Medications Medications Dose Ordered Sig/Jesus Route Start Time Stop Time Status Last Admin Dose Admin Hydralazine HCl 10 mg Q6HP PRN IV 06/25/24 01:45 06/28/24 12:00 10 MG Aspirin 81 mg DAILY PO 06/25/24 10:00 06/30/24 10:19 81 MG Amlodipine Besylate 5 mg DAILY PO 06/25/24 10:00 06/30/24 10:20 5 MG Metoprolol Tartrate 25 mg BID PO 06/25/24 10:00 06/30/24 10:20 25 MG Sodium Chloride 10 ml Q8HR IV 06/25/24 06:00 06/30/24 06:17 10 ML Ondansetron HCl 4 mg Q4HP PRN IV 06/25/24 01:45 06/27/24 16:30 4 MG Docusate Sodium 100 mg BIDPRN PRN PO 06/25/24 01:45 Acetaminophen 650 mg Q6HP PRN PO 06/25/24 01:45 06/29/24 12:21 650 MG Acetaminophen/ Hydrocodone Bitart 1 tab Q6HPRN PRN PO 06/25/24 02:45 06/30/24 07:47 1 TAB Morphine Sulfate 2 mg Q30M PRN IV 06/25/24 03:15 06/28/24 08:37 2 MG Atorvastatin Calcium 40 mg HS PO 06/26/24 22:00 06/29/24 21:36 40 MG Lorazepam 1 mg Q4HP PRN IV 06/28/24 13:30 06/29/24 06:32 1 MG Haloperidol Lactate 3 mg Q8HP PRN IM 06/28/24 15:00 06/28/24 15:12 3 MG Ceftriaxone Sodium 50 ml @ 100 mls/hr DAILY@09 IV 06/30/24 09:00 06/30/24 10:20 100 MLS/HR Laboratory Results Laboratory Tests 06/30/24 07:30 Chemistry Test 06/29/24 14:06 06/30/24 07:30 Albumin 4.5 g/dL (3.2-4.8) 4.3 g/dL (3.2-4.8) Calcium Level 9.1 mg/dL (8.7-10.4) 10.0 mg/dL (8.7-10.4) Magnesium Level 1.8 mg/dL (1.6-2.6) Total Protein 6.9 g/dL (5.7-8.2) 6.8 g/dL (5.7-8.2) LFT Test 06/29/24 14:06 06/30/24 07:30 Alanine Aminotransferase (ALT) 38 U/L (7-40) 46 U/L (7-40) H Alkaline Phosphatase 48 U/L (46-116) 50 U/L (46-116) Aspartate Amino Transferase (AST) 155 U/L (13-40) H 144 U/L (13-40) H Total Bilirubin 1.2 mg/dL (0.2-1.0) H 1.5 mg/dL (0.2-1.0) H Urinalysis Test 06/24/24 19:31 Urine Color Light-yellow (Yellow) Urine Clarity Clear (Clear) Urine pH 6.0 (5.0-9.0) Urine Specific [place] 1.016 (1.001-1.035) Urine Protein Negative (Negative) Urine Ketones Negative (Negative) Urine Blood Negative /uL (Negative) Urine Nitrite Negative (Negative) Urine Bilirubin Negative (Negative) Urine Urobilinogen Normal mg/dL (Negative) Urine Leukocyte Esterase Negative /uL (Negative) Urine RBC <1 /hpf (0 - 4) Urine Microscopic WBC 1 /HPF (0-5) Urine Squamous Epithelial Cells Few /hpf (<5) Urine Bacteria None seen /hpf (None Seen) Urine Glucose Normal mg/dL (Normal) Assessment/Plan Assessment/Plan NSTEMI status post cardiac catheterization Acute toxic encephalopathy Severe agitation post cardiac catheterization possible secondary to reaction to sedation medication Hypertension Pulmonary hypertension Continuing current management. I will add Ativan 1 mg p.o. q.4 hours PRN for anxiety. So Haldol 3 mg IM Q eight hours p.r.n. for severe agitation Continuing hypertensive medication Less agitate today. Will continue management. Hopefully can be dc when less agitate and confuse. This medical document was created using an electronic medical record system with [employer] computerized dictation system. Although this document has been carefully reviewed, there may still be some phonetic and typographical errors. These areas are purely typographical due to imperfections of the software programs, and do not reflect any compromise in the patient's medical care. EDUARD ALVARES MD June 30, 2024 12:51
[2024-06-30 13:00] VITALS: BP 108/70; PULSE 91; RESP 18; TEMP 97.9; O2SAT 94
[2024-06-30] MEDS ORDERED: AML5T PO (13:59)
[2024-06-30] MEDS ORDERED: ATOR20TA PO (14:01)
--- NOTE | 2024-06-30 14:02 | DVHDS2 ---
Discharge Summary Date of Admission June 25, 2024 at 03:09 Date of Discharge: June 30, 2024 Admitting Diagnosis NSTEMI status post cardiac catheterization Acute toxic encephalopathy Severe agitation post cardiac catheterization possible secondary to reaction to sedation medication Hypertension Pulmonary hypertension Labs/Diagnostic Data: Laboratory Results Test 06/30/24 07:30 06/29/24 14:06 06/28/24 06:40 06/27/24 06:09 White Blood Count 5.6 10^3/uL (4.4-10.8) Red Blood Count 3.43 10^6/uL (4.0-5.20) Hemoglobin 11.2 g/dL (12.2-16.2) Hematocrit 33.1 % (36.0-46.0) Mean Corpuscular Volume 96.4 fL (80.0-100.0) Mean Corpuscular Hemoglobin 32.5 pg (28.0-32.0) Mean Corpuscular Hemoglobin Concent 33.7 g/dL (32.0-36.0) Red Cell Distribution Width 13.9 % (11.8-14.3) Platelet Count 117 10^3/uL (140-450) Mean Platelet Volume 9.6 fL (6.9-10.8) Neutrophils (%) (Auto) 66.3 % (37.0-80.0) Lymphocytes (%) (Auto) 18.7 % (10.0-50.0) Monocytes (%) (Auto) 14.1 % (0.0-12.0) Eosinophils (%) (Auto) 0.6 % (0.0-7.0) Basophils (%) (Auto) 0.3 % (0.0-2.0) Neutrophils # (Auto) 3.7 10 ^3/uL (1.6-8.6) Lymphocytes # (Auto) 1.1 10 ^3/uL (0.4-5.4) Monocytes # (Auto) 0.8 10 ^3/uL (0-1.3) Eosinophils # (Auto) 0 10 ^3/uL (0-0.8) Basophils # (Auto) 0 10 ^3/uL (0-0.2) Nucleated Red Blood Cells 0.0 % Sodium Level 142 mmol/L (136-145) Potassium Level 3.8 mmol/L (3.5-5.1) Chloride Level 106 mmol/L (98-107) Carbon Dioxide Level 26 mmol/L (20-31) Anion Gap 10 (5-15) Blood Urea Nitrogen 18 mg/dL (9-23) Creatinine 1.19 mg/dL (0.550-1.02) Glomerular Filtration Rate Calc 47 mL/min (>90) BUN/Creatinine Ratio 15.1 (10.0-20.0) Serum Glucose 99 mg/dL (74-106) Calcium Level 10.0 mg/dL (8.7-10.4) Total Bilirubin 1.5 mg/dL (0.2-1.0) Aspartate Amino Transferase (AST) 144 U/L (13-40) Alanine Aminotransferase (ALT) 46 U/L (7-40) Alkaline Phosphatase 50 U/L (46-116) Total Protein 6.8 g/dL (5.7-8.2) Albumin 4.3 g/dL (3.2-4.8) Magnesium Level 1.8 mg/dL (1.6-2.6) Prothrombin Time 11.8 sec (9.3-11.8) Prothrombin Time INR 1.13 (0.9-1.15) Activated Partial Thromboplast Time 27.6 SEC (24.5-34.5) Troponin I High Sensitivity 71 ng/L (</=34) B-Type Natriuretic Peptide 286.80 pg/mL (0-100) Hemoglobin A1c 4.9 % A1C (<5.7) Triglycerides Level 124 mg/dL (< 150) Cholesterol Level 124 mg/dL (< 200) LDL Cholesterol 35 mg/dL (< 100) HDL Cholesterol 51 mg/dL (40-59) Thyroid Stimulating Hormone (TSH) 1.01 uIU/mL (0.55-4.78) Test 06/24/24 19:31 06/24/24 17:17 Urine Color Light-yellow (Yellow) Urine Clarity Clear (Clear) Urine pH 6.0 (5.0-9.0) Urine Specific [place] 1.016 (1.001-1.035) Urine Protein Negative (Negative) Urine Ketones Negative (Negative) Urine Blood Negative /uL (Negative) Urine Nitrite Negative (Negative) Urine Bilirubin Negative (Negative) Urine Urobilinogen Normal mg/dL (Negative) Urine Leukocyte Esterase Negative /uL (Negative) Urine RBC <1 /hpf (0 - 4) Urine Microscopic WBC 1 /HPF (0-5) Urine Squamous Epithelial Cells Few /hpf (<5) Urine Bacteria None seen /hpf (None Seen) Urine Glucose Normal mg/dL (Normal) D-Dimer, Quantitative 0.91 mg/L FEU (0.0-0.49) Other Laboratory Tests 06/30/24 07:30 Brief Hx & Hospital Course: This is a 79 years old female with past medical history hyperlipidemia, hypertension come to emergency department because shortness for breath. She also had intermittent shortness for breath for last month. Patient had ignored it until today she can not take it anymore so she saw her primary care physician for further workup. At the office of the primary care physician her blood pressure was 185/110. The patient was advised to come to emergency department. When the patient came to [facility] Emergency Department, her blood pressure was 200/110. The patient was complain of chest discomfort, shortness for breath. The patient was admitted. 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 Troponin levels peaked at 40 ng/L. Reports significant familial history for cardiovascular disease including father with multiple myocardial infarctions and mother with CVA . CT angio chest showed no pulmonary embolism. The patient subsequently has echo done showed lvef 60%. Moderate LVH. Normal rv function. Left atrium enlarged no severe valve abnormalities noted. The patient subsequently had cardiac catheterization done which showed normal left ventricular end-diastolic pressure rest normal ejection fraction. Mild CAD involving the distal circumflex. Tri[employer]er recommended medical management. After cardiac catheterization the patient had severe allergic reaction to the sedation during the cardiac catheterization. She become very agitated, confused, encephalopathy. The patient can not recognize her . The patient tried to pull off all of her IV access and walk around the bed. The patient was given Haldol and Ativan. Subsequently today after the 1st episode of toxic encephalopathy the patient clinically improved. She become more alert oriented x3. Kidney function remained stable. The patient will be discharged home today. Advised her to follow up with primary care physician 1-2 weeks. Follow up with cow tester per schedule. Activity as tolerated. Diet low-salt low-cholesterol diet. Physical exam: HEENT: Normocephalic atraumatic pupils equal react to light and accommodation. Extraocular muscles intact, conjunctiva pink, oropharynx moist, no thrush, no exudate. Lymphatic: No lymphadenopathy Cardiovascular exam: S1, S2 was heard. No murmurs, rubs, gallops Lung: Clear on auscultation bilaterally, no wheeze, rale, rhonchi. GI: Abdominal soft, nondistended, nontenderness, positive bowel sounds. Extremity: No crepitus, cyanosis, edema. Pedal pulses present bilateral. Full range of motion. Skin: Normal turgor, no rash. Psych: Alert, oriented x3. Neurology: No focal deficits, cranial nerve II to XII grossly intact. This medical document was created using an electronic medical record system with [employer] direct computerized dictation system. Although this document has been carefully reviewed, there may still be some phonetic and typographical errors. These areas are purely typographical due to imperfections of the software programs, and do not reflect any compromise in the patient's medical care. Condition at Discharge: Stable Final Diagnosis/Problems List NSTEMI status post cardiac catheterization Mild CAD Acute toxic encephalopathy Severe agitation post cardiac catheterization possible secondary to reaction to sedation medication Hypertension Pulmonary hypertension Discharge Disposition: Home Discharge Instruct/Medications Diet: Cardiac 2g Na,low cholest Activity: No Restrictions, As Tolerated Follow Up/Referral: pcp 1-2 weeks Medications: resume home meds lipitor 20mg daily norvasc 5mg daily Discharge Statement: "Patient was advised to return to the ER or call 911 if any headaches, dizziness, shortness of breath, chest pain, abdominal pain, bleeding, fevers, or worsening of medical condition. Patient was counseled about treatment plan, medications, possible side effects, patientverbalized understanding. All questions were answered to the best of my ability. This discharge took greater then 30 minutes in planning, reviewing documentation, counseling the patient, and discussing with other team members." ASSESSMENT ASSESSMENT Assessment Mild CAD acute encephalopathy Date of Service: June 30, 2024 Billing Provider: EDUARD ALVARES MD Common Visit Codes: 50816-EIL/OBS DISCH DAY >30min EDUARD ALVARES MD June 30, 2024 14:02
== END 2024-06-30 16:07 | disposition home or self-care (01) | DRG 280 ==
LOC: ER 16:46 → OVERFLOW 06-25 03:09 → TELE-WESTW 06-25 18:36
PROVIDERS: ADMIT Internal Medicine; ATTEND Internal Medicine
PROC: 4A023N7 Measurement of Cardiac Sampling and Pressure, Left Heart, Percutaneous Approach (ICD-10-PCS; principal; 2024-06-28)
PROC: B211YZZ Fluoroscopy of Multiple Coronary Arteries using Other Contrast (ICD-10-PCS; 2024-06-28)
PROC: B215YZZ Fluoroscopy of Left Heart using Other Contrast (ICD-10-PCS; 2024-06-28)
DX: I21.4 Non-ST elevation (NSTEMI) myocardial infarction (principal); G92.9 Unspecified toxic encephalopathy; I50.31 Acute diastolic (congestive) heart failure; I27.20 Pulmonary hypertension, unspecified; I16.0 Hypertensive urgency; I25.10 Atherosclerotic heart disease of native coronary artery without angina pectoris; E78.5 Hyperlipidemia, unspecified; G89.4 Chronic pain syndrome; M81.0 Age-related osteoporosis without current pathological fracture; Z96.659 Presence of unspecified artificial knee joint; Z79.899 Other long term (current) drug therapy; Z82.49 Family history of ischemic heart disease and other diseases of the circulatory system; Z82.3 Family history of stroke
CPT/HCPCS: 36415; 70450; 71045; 71275; 80048; 80053; 80061; 81001; 83036; 83735; 83880; 84443; 84484; 85025; 85379; 85610; 85730; 86850; 86900; 86901; 93005; 93306; 93458; 96372; 99152; G0378; J1100; J2250; J2405; Q9967